=== PATIENT | female | born 1985 | race Caucasian/White ===

== ENCOUNTER 2018-08-03 11:13 | Emergency (ER) | payer MEDICAID, SELFPAY ==
[2018-08-03 11:14] VITALS: BP 158/87; PULSE 110; RESP 20; TEMP 36.8; O2SAT 98; BMI 42.5
--- NOTE | 2018-08-03 11:23 | HMH.EDUTC ---
[facility] [place] Disposition Clinical Impression: Strep pharyngitis Disposition: Home, Self-Care Condition on Discharge: Good Instructions: DI for Strep Throat Prescriptions: Amoxicillin [Amoxicillin 875MG Tab] 875 mg PO Q12H #20 tab Referrals: Kristina Kennedy MD [Primary Care Provider] - Time of Disposition: 11:29 Medical Decision Making - Garret Inquiry Pt receiving controlled substance: No Vital Signs: 08/03/18 11:14 Temperature 98.3 F Temperature Source Oral Pulse Rate [Left Radial] 110 H Respiratory Rate 20 Blood Pressure [Right Arm] 158/87 H Blood Pressure Mean [Right Arm] 110 Blood Pressure Source [Right Arm] Automatic Cuff Blood Pressure Position [Right Arm] Sitting 02 Sat by Pulse Oximetry 98 Oxygen Delivery Method Room Air - Lab Data Lab results reviewed: Yes: I reviewed the patient's lab results. [facility] [place] HPI - General Stated complaint: sore throat Time Seen by Provider: 08/03/18 11:24 Mode of Arrival: Ambulatory Source of Information: Patient Limitations: No Limitations Description of Symptoms (Recalled from Triage Doc. by RN): sore throat and swollen throat HEENT Symptoms (Recalled from RN notes): Yes Resp Symptoms (Recalled from RN notes): No Skin Symptoms (Recalled from RN notes): No MS Symptoms (Recalled from RN notes): No Functional Status (Recalled from RN notes): wnl - History of Present Illness Provider Complaint: Sore throat started in the middle of the night. No fever. Throat feels swollen, extremely sore, and has difficulty swallowing. Mild right ear pain. Mild cough (smoker). No vomiting or diarrhea. LMP 2 months ago - states does not have regular periods. Onset (ago): hour(s) (12) Location: mouth Relieving factors: none Exacerbating factors: none Associated symptoms: denies other symptoms Treatments prior to arrival: none - Related Data Previous Rx's Medication Instructions Recorded Azithromycin [Z-Brian 250mg Tab] 250 mg PO UD DOSE PK #6 tab 04/03/18 Benzonatate [Tessalon Perle 100mg 100 mg PO TID #30 cap 04/03/18 Cap] Fluticasone Propionate [Flonase 2 spr NS DAILY #1 bottle 04/03/18 50mcg nasal spray 16gm] predniSONE [Prednisone 5mg Tab 5 mg PO UD DOSE PK #21 pack 04/03/18 Dose-Pack] Amoxicillin [Amoxicillin 875MG 875 mg PO Q12H #20 tab 08/03/18 Tab] Allergies Allergy/AdvReac Type Severity Reaction Status Date / Time Sulfa (Sulfonamide Allergy Verified 05/11/18 08:41 Antibiotics) - Worker's Comp Is this a Worker's Comp case?: No H History - Hepatitis A Screen Drug use history?: No High risk sexual behaviors?: No History of sexually transmitted infection?: No Currently employed?: No Childcare worker?: No Do you have indoor plumbing?: Yes Do you have electricity?: Yes Attestation statement:: This patient has been screened for Hepatitis A risk factors. I have reviewed the patient's past medical history: No Medical History: Denies:: Diabetes Mellitus Type 1, Diabetes Mellitus Type 2 - Social History Educational Level: Completed High School Smoking Status: Current every day smoker Tobacco Type: cigarettes # Packs/Day (cigarettes): 1 Alcohol Intake: never Occupational Status: unemployed Housing: house - Psychiatric History Expresses thoughts of harming self/others: None Suicide Plan Description: No Plan ROS Obtained: Yes All systems reviewed & no additional complaints - ENT Ears, Nose, Mouth, and Throat: Reports sore throat, Reports throat swelling Physical Exam - General General appearance: alert, in no apparent distress - Head Head exam: atraumatic, normocephalic, normal inspection - Eye Eye exam: Present: normal appearance, PERRL, EOMI - ENT ENT exam: Present: normal exam, normal oropharynx, mucous membranes moist, TM's normal bilaterally, normal external ear exam - Expanded ENT Exam Throat exam: Present: tonsillar erythema, tonsillomegaly, tonsillar exudate - Neck Neck exam: Present: normal insp
--- NOTE | 2018-08-03 11:27 | ED_ITS ---
[facility] [place]ression: Strep pharyngitis Disposition: Home, Self-Care Condition on Discharge: Good Instructions: DI for Strep Throat Prescriptions: Amoxicillin [Amoxicillin 875MG Tab] 875 mg PO Q12H #20 tab Referrals: Kristina Kennedy MD [Primary Care Provider] - Time of Disposition: 11:29 Medical Decision Making - Garret Inquiry Pt receiving controlled substance: No Vital Signs: 08/03/18 11:14 Temperature 98.3 F Temperature Source Oral Pulse Rate [Left Radial] 110 H Respiratory Rate 20 Blood Pressure [Right Arm] 158/87 H Blood Pressure Mean [Right Arm] 110 Blood Pressure Source [Right Arm] Automatic Cuff Blood Pressure Position [Right Arm] Sitting 02 Sat by Pulse Oximetry 98 Oxygen Delivery Method Room Air - Lab Data Lab results reviewed: Yes: I reviewed the patient's lab results. [facility] [place] - General Stated complaint: sore throat Time Seen by Provider: 08/03/18 11:24 Mode of Arrival: Ambulatory Source of Information: Patient Limitations: No Limitations Description of Symptoms (Recalled from Triage Doc. by RN): sore throat and swollen throat HEENT Symptoms (Recalled from RN notes): Yes Resp Symptoms (Recalled from RN notes): No Skin Symptoms (Recalled from RN notes): No MS Symptoms (Recalled from RN notes): No Functional Status (Recalled from RN notes): wnl - History of Present Illness Provider Complaint: Sore throat started in the middle of the night. No fever. Throat feels swollen, extremely sore, and has difficulty swallowing. Mild right ear pain. Mild cough (smoker). No vomiting or diarrhea. LMP 2 months ago - states does not have regular periods. Onset (ago): hour(s) (12) Location: mouth Relieving factors: none Exacerbating factors: none Associated symptoms: denies other symptoms Treatments prior to arrival: none - Related Data Previous Rx's Medication Instructions Recorded Azithromycin [Z-Brian 250mg Tab] 250 mg PO UD DOSE PK #6 tab 04/03/18 Benzonatate [Tessalon Perle 100mg 100 mg PO TID #30 cap 04/03/18 Cap] Fluticasone Propionate [Flonase 2 spr NS DAILY #1 bottle 04/03/18 50mcg nasal spray 16gm] predniSONE [Prednisone 5mg Tab 5 mg PO UD DOSE PK #21 pack 04/03/18 Dose-Pack] Amoxicillin [Amoxicillin 875MG 875 mg PO Q12H #20 tab 08/03/18 Tab] Allergies Allergy/AdvReac Type Severity Reaction Status Date / Time Sulfa (Sulfonamide Allergy Verified 05/11/18 08:41 Antibiotics) - Worker's Comp Is this a Worker's Comp case?: No [facility] History - Hepatitis A Screen Drug use history?: No High risk sexual behaviors?: No History of sexually transmitted infection?: No Currently employed?: No Childcare worker?: No Do you have indoor plumbing?: Yes Do you have electricity?: Yes Attestation statement:: This patient has been screened for Hepatitis A risk factors. I have reviewed the patient's past medical history: No Medical History: Denies:: Diabetes Mellitus Type 1, Diabetes Mellitus Type 2 - Social History Educational Level: Completed High School Smoking Status: Current every day smoker Tobacco Type: cigarettes # Packs/Day (cigarettes): 1 Alcohol Intake: never Occupational Status
[2018-08-03 11:35] LABS: UTC Strep Screen (Rapid) Positive (Negative)
[2018-08-03 11:41] VITALS: BP 158/87; PULSE 110; RESP 20; TEMP 36.8; O2SAT 98
== END 2018-08-03 11:42 | disposition home or self-care (01) ==
PROVIDERS: Emergency Provider Physician Assistant; PCP Student in an Organized Health Care Education/Training Program
DX: J02.0 Streptococcal pharyngitis (principal); F17.210 Nicotine dependence, cigarettes, uncomplicated; Z88.0 Allergy status to penicillin
CPT/HCPCS: 87880; 99201

== ENCOUNTER 2019-11-27 14:09 | Emergency (ER) | payer MEDICAID, SELFPAY ==
[2019-11-27 14:56] VITALS: BP 116/84; PULSE 96; RESP 20; TEMP 36.9; O2SAT 98; BMI 50.3
--- NOTE | 2019-11-27 15:24 | HMH.EDUTC ---
[facility] [place] Clinical Impression: Viral syndrome Disposition: Home, Self-Care Condition on Discharge: Good Instructions: DI for Viral Syndrome Additional Instructions: Drink plenty of fluids. Take tylenol or ibuprofen for pain or fever. Follow up with your regular doctor. GO TO THE ER FOR ANY WORSENING SYMPTOMS FOLLOW THE DIRECTIONS ON THE COVID-19 HAND OUT THAT WE GAVE YOU REGARDING SELF-ISOLATION UNTIL YOU KNOW YOUR COVID-19 RESULTS Referrals: PCP,No [Primary Care Provider] - Forms: Work/School Release Time of Disposition: 15:29 Medical Decision Making - Medical Records Medical records reviewed: No: I reviewed the patient's medical records. - Garret Inquiry Pt receiving controlled substance: No Vital Signs: 11/27/19 14:56 11/27/19 15:32 Temperature 98.4 F 98.4 F Temperature Source Oral Oral Pulse Rate 96 H Pulse Rate [Radial] 96 H Respiratory Rate 20 20 Blood Pressure 116/84 Blood Pressure [Right Arm] 116/84 Blood Pressure Mean [Right Arm] 94 Blood Pressure Source Automatic Cuff Blood Pressure Source [Right Arm] Automatic Cuff Blood Pressure Position Sitting Blood Pressure Position [Right Arm] Sitting 02 Sat by Pulse Oximetry 98 Oxygen Delivery Method Room Air Room Air - Lab Data Lab results reviewed: Yes: I reviewed the patient's lab results. [facility] [place] - General Stated complaint: fever Time Seen by Provider: 11/27/19 15:24 Mode of Arrival: Ambulatory Source of Information: Patient Limitations: No Limitations Description of Symptoms (Recalled from Triage Doc. by RN): running a low grade fever HEENT Symptoms (Recalled from RN notes): Yes Resp Symptoms (Recalled from RN notes): No Skin Symptoms (Recalled from RN notes): No MS Symptoms (Recalled from RN notes): No Functional Status (Recalled from RN notes): wnl - History of Present Illness Provider Complaint: She states that she was at work this morning when her temp was checked and it read 100.6. She denies feeling bad, other than she has had some nasal congestion on and off for the past 3 days. - Related Data Previous Rx's Medication Instructions Recorded Albuterol Sulfate [Albuterol HFA 2 puffs IH Q6HP PRN #1 inh 11/22/18 Inhaler] Azithromycin [Z-Brian 250mg Tab*] 250 mg PO UD DOSE PK #6 tab 11/22/18 predniSONE [Prednisone 20mg 20 mg PO BID 5 Days #10 tab 11/22/18 Tab] guaiFENesin [Mucinex] 600 mg PO Q12H 5 Days #10 12/06/18 tab.er.12h levoFLOXacin [Levaquin 500mg 500 mg PO DAILY #10 tab 12/06/18 tab] Allergies Allergy/AdvReac Type Severity Reaction Status Date / Time Sulfa (Sulfonamide Allergy Verified 05/11/18 08:41 Antibiotics) - Worker's Comp Is this a Worker's Comp case?: No [facility] History - Hepatitis A Screen Drug use history?: No High risk sexual behaviors?: No History of sexually transmitted infection?: No Currently employed?: No Childcare worker?: No Do you have indoor plumbing?: Yes Do you have electricity?: Yes Attestation statement:: This patient has been screened for Hepatitis A risk factors. I have reviewed the patient's past medical history: Yes Medical History: Denies:: Diabetes Mellitus Type 1, Diabetes Mellitus Type 2 - Social History Smoking Status: Current every day smoker Tobacco Type: cigarettes # Packs/Day (cigarettes): 1 Alcohol Intake: never Occupational Status: other Housing: house ROS Obtained: Yes All systems reviewed & no additional complaints - Constitutional Constitutional: Reports chills, Denies fever(s), Reports poor appetite, Reports malaise - Eyes Eyes: Denies eye discharge - ENT Ears, Nose, Mouth, and Throat: Reports as per HPI - Cardiovascular Cardiovascular: Denies chest pain Physical Exam - General General appearance: alert, in no apparent distress - Head Head exam: atraumatic, normocephalic, normal inspection - Eye Eye exam: Present: normal appearance, PERRL, EOMI - ENT ENT
[2019-11-27 15:32] VITALS: BP 116/84; PULSE 96; RESP 20; TEMP 36.9; O2SAT 98
== END 2019-11-27 15:34 | disposition home or self-care (01) ==
PROVIDERS: Emergency Provider Nurse Practitioner Family
DX: B34.9 Viral infection, unspecified (principal); Z88.2 Allergy status to sulfonamides; F17.210 Nicotine dependence, cigarettes, uncomplicated; Z20.828 Contact with and (suspected) exposure to other viral communicable diseases
CPT/HCPCS: 99201; U0003

== ENCOUNTER 2019-12-02 11:44 | Emergency (ER) | payer MEDICAID, SELFPAY ==
[2019-12-02 12:53] VITALS: BP 141/93; PULSE 82; RESP 16; TEMP 36.9; O2SAT 99; BMI 49.6
--- NOTE | 2019-12-02 12:53 | HMH.EDUTC ---
[facility] [place] Clinical Impression: Bronchitis Sinusitis Qualifiers: Sinusitis location: unspecified location Chronicity: acute Recurrence: non-recurrent Qualified Code(s): J01.90 - Acute sinusitis, unspecified Disposition: Home, Self-Care Condition on Discharge: Good Instructions: Sinusitis, DI for Sinusitis, DI for Acute Bronchitis Additional Instructions: Drink plenty of fluids. Take tylenol or ibuprofen for pain or fever. Take the medications as directed. Follow up with your regular doctor. GO TO THE ER FOR ANY WORSENING SYMPTOMS Don't start the oral steroids until tomorrow, since you had the shot here today. The cough medication (promethazine dm) will make you drowsy, so don't drive or operate heavy machinery after taking it. FOLLOW THE DIRECTIONS ON THE COVID-19 HAND OUT THAT WE GAVE YOU REGARDING SELF-ISOLATION UNTIL YOU KNOW YOUR COVID-19 RESULTS Prescriptions: Brompheniramine/Pseudoephed/Dm [Bromfed Dm Cough Syrup] 5 ml PO Q6HP PRN #240 syrup PRN Reason: Cough Transmission Status: Received by [facility] # methylPREDNISolone [Medrol] 4 mg PO DIRECTED 6 Days #21 tab.ds.pk Transmission Status: Received by [facility] [employer] # Azithromycin [Z-Brian 250mg Tab*] 250 mg PO UD DOSE PK #6 tab Transmission Status: Received by [facility] [employer] # Referrals: PCP,No [Primary Care Provider] - Forms: Work/School Release Time of Disposition: 13:21 Medical Decision Making - Medical Records Medical records reviewed: No: I reviewed the patient's medical records. - Garret Inquiry Pt receiving controlled substance: No Vital Signs: 12/02/19 12:53 12/02/19 13:27 Temperature 98.5 F 98.5 F Temperature Source Oral Pulse Rate 82 Pulse Rate [Right Brachial] 82 Respiratory Rate 16 16 Blood Pressure 141/93 H Blood Pressure [Right Arm] 141/93 H Blood Pressure Mean [Right Arm] 109 Blood Pressure Source [Right Arm] Automatic Cuff Blood Pressure Position [Right Arm] Sitting 02 Sat by Pulse Oximetry 99 Oxygen Delivery Method Room Air - Lab Data Lab results reviewed: Yes: I reviewed the patient's lab results. Orders (Tests/Meds): ED MEDICATIONS Discontinued Medications Generic Name Dose Route Start Last Admin Trade Name Freq PRN Reason Stop Dose Admin Ceftriaxone Sodium 1 gm 12/02/19 13:05 12/02/19 13:18 Ceftriaxone 1gm Vial IM 12/02/19 13:06 1 gm ONCE ONE Administration Protocol Lidocaine HCl 0 ml 12/02/19 13:05 12/02/19 13:18 Lidocaine 1% 5ml Pf Vial IM 12/02/19 13:06 2.1 ml ONCE ONE Administration Methylprednisolone Sodium Succinate 125 mg 12/02/19 13:05 12/02/19 13:18 Methylprednisolone Sod Succ 125mg Vial IM 12/02/19 13:06 125 mg ONCE ONE Administration [facility] [place] - General Stated complaint: congested Time Seen by Provider: 12/02/19 12:53 - History of Present Illness Provider Complaint: She c/o worsening cough and sinus and chest congestion. She was here last week and she was tested for covid (result was negative). She states that since then she has got worse. - Related Data Previous Rx's Medication Instructions Recorded Albuterol Sulfate [Albuterol HFA 2 puffs IH Q6HP PRN #1 inh 11/22/18 Inhaler] Azithromycin [Z-Brian 250mg Tab*] 250 mg PO UD DOSE PK #6 tab 11/22/18 predniSONE [Prednisone 20mg 20 mg PO BID 5 Days #10 tab 11/22/18 Tab] guaiFENesin [Mucinex] 600 mg PO Q12H 5 Days #10 12/06/18 tab.er.12h levoFLOXacin [Levaquin 500mg 500 mg PO DAILY #10 tab 12/06/18 tab] Azithromycin [Z-Brian 250mg Tab*] 250 mg PO UD DOSE PK #6 tab 12/02/19 Brompheniramine/Pseudoephed/Dm 5 ml PO Q6HP PRN #240 syrup 12/02/19 [Bromfed Dm Cough Syrup] methylPREDNISolone [Medrol] 4 mg PO DIRECTED 6 Days #21 12/02/19 tab.ds.pk Allergies Allergy/AdvReac Type Severity Reaction Status Date / Time Sulfa (Sulfonamide Allergy Verified 05/11/18 08:41 Antibiotics)
[2019-12-02 13:27] VITALS: BP 141/93; PULSE 82; RESP 16; TEMP 36.9; O2SAT 99
== END 2019-12-02 13:28 | disposition home or self-care (01) ==
PROVIDERS: Emergency Provider Nurse Practitioner Family
DX: J20.9 Acute bronchitis, unspecified (principal); J01.90 Acute sinusitis, unspecified; Z20.828 Contact with and (suspected) exposure to other viral communicable diseases; Z88.2 Allergy status to sulfonamides
CPT/HCPCS: 96372; 99201; U0003

== ENCOUNTER 2019-12-06 11:09 | Emergency (ER) | payer MEDICAID, SELFPAY ==
[2019-12-06 11:09] VITALS: BP 151/87; PULSE 78; RESP 16; TEMP 36.8; O2SAT 98; BMI 49.6
--- NOTE | 2019-12-06 11:57 | HMH.EDUTC ---
[facility] [place] Disposition Clinical Impression: Sinusitis Qualifiers: Sinusitis location: unspecified location Chronicity: acute Recurrence: non-recurrent Qualified Code(s): J01.90 - Acute sinusitis, unspecified Disposition: Home, Self-Care Condition on Discharge: Good Instructions: Sinusitis, DI for Sinusitis Additional Instructions: Finish the medications that you are on. Go home and rest. Take tylenol or ibuprofen for pain/fever. GO TO THE ER FOR ANY WORSENING SYMPTOMS OR CONCERNS Referrals: PCP,No [Primary Care Provider] - Forms: Work/School Release Time of Disposition: 12:10 Medical Decision Making - Medical Records Medical records reviewed: No: I reviewed the patient's medical records. - Garret Inquiry Pt receiving controlled substance: No Vital Signs: 12/06/19 11:09 12/06/19 12:13 Temperature 98.2 F 98.2 F Temperature Source Oral Oral Pulse Rate 78 Pulse Rate [Right] 78 Respiratory Rate 16 16 Blood Pressure 151/87 H Blood Pressure [Right Arm] 151/87 H Blood Pressure Mean [Right Arm] 108 Blood Pressure Source Automatic Cuff Blood Pressure Source [Right Arm] Automatic Cuff Blood Pressure Position Sitting Blood Pressure Position [Right Arm] Sitting 02 Sat by Pulse Oximetry 98 Oxygen Delivery Method Room Air Room Air [facility] [place] HPI - General Stated complaint: Fever, sore throat Time Seen by Provider: 12/06/19 11:56 Mode of Arrival: Ambulatory Source of Information: Patient Limitations: No Limitations Description of Symptoms (Recalled from Triage Doc. by RN): Pt advises she was at work and had a low grade temp. C/o headache and feeling congested. HAs already been tested for covid HEENT Symptoms (Recalled from RN notes): Yes (cough, headache) Resp Symptoms (Recalled from RN notes): No Skin Symptoms (Recalled from RN notes): No MS Symptoms (Recalled from RN notes): No Functional Status (Recalled from RN notes): na - History of Present Illness Provider Complaint: She states that she has been having continued sinus congestion. She was at work and felt sick so she was sent here. - Related Data Previous Rx's Medication Instructions Recorded Albuterol Sulfate [Albuterol HFA 2 puffs IH Q6HP PRN #1 inh 11/22/18 Inhaler] Azithromycin [Z-Brian 250mg Tab*] 250 mg PO UD DOSE PK #6 tab 11/22/18 predniSONE [Prednisone 20mg 20 mg PO BID 5 Days #10 tab 11/22/18 Tab] guaiFENesin [Mucinex] 600 mg PO Q12H 5 Days #10 12/06/18 tab.er.12h levoFLOXacin [Levaquin 500mg 500 mg PO DAILY #10 tab 12/06/18 tab] Azithromycin [Z-Brian 250mg Tab*] 250 mg PO UD DOSE PK #6 tab 12/02/19 Brompheniramine/Pseudoephed/Dm 5 ml PO Q6HP PRN #240 syrup 12/02/19 [Bromfed Dm Cough Syrup] methylPREDNISolone [Medrol] 4 mg PO DIRECTED 6 Days #21 12/02/19 tab.ds.pk Allergies Allergy/AdvReac Type Severity Reaction Status Date / Time Sulfa (Sulfonamide Allergy Verified 05/11/18 08:41 Antibiotics) - Worker's Comp Is this a Worker's Comp case?: No [facility] History - Hepatitis A Screen Drug use history?: No High risk sexual behaviors?: No History of sexually transmitted infection?: No Currently employed?: No Childcare worker?: No Do you have indoor plumbing?: Yes Do you have electricity?: Yes Attestation statement:: This patient has been screened for Hepatitis A risk factors. I have reviewed the patient's past medical history: Yes Medical History: Denies:: Diabetes Mellitus Type 1, Diabetes Mellitus Type 2 - Social History Smoking Status: Current every day smoker Tobacco Type: cigarettes # Packs/Day (cigarettes): 1 Alcohol Intake: never Occupational Status: other Housing: house ROS Obtained: Yes All systems reviewed & no additional complaints - Constitutional Constitutional: Denies chills, Denies fever(s) - ENT Ears, Nose, Mouth, and Throat: Reports as per HPI Physical Exam - General General appearance: alert, in no apparent distress - Head Head exam: atrau
[2019-12-06 12:13] VITALS: BP 151/87; PULSE 78; RESP 16; TEMP 36.8; O2SAT 98
== END 2019-12-06 12:29 | disposition home or self-care (01) ==
PROVIDERS: Emergency Provider Nurse Practitioner Family
DX: J01.90 Acute sinusitis, unspecified (principal); F17.210 Nicotine dependence, cigarettes, uncomplicated; Z88.2 Allergy status to sulfonamides
CPT/HCPCS: 99201

== ENCOUNTER 2020-02-18 08:10 | Emergency (ER) | payer MEDICAID, SELFPAY ==
[2020-02-18 08:17] VITALS: BP 151/87; PULSE 95; RESP 20; TEMP 36.8; O2SAT 98; BMI 47.8
--- NOTE | 2020-02-18 08:20 | HMH.EDGENADL ---
ED Disposition Clinical Impression: Abrasion of sclera of right eye Qualifiers: Encounter type: initial encounter Qualified Code(s): S05.8X1A - Other injuries of right eye and orbit, initial encounter Hordeolum Qualifiers: Hordeolum type: externum Laterality: right Eyelid: lower Qualified Code(s): H00.012 - Hordeolum externum right lower eyelid Disposition: Home Health Service Condition on Discharge: Good Instructions: DI for Hordeolum Additional Instructions: Additional instructions for EYE PAIN or INJURY: Follow up with an chapter relations administrator as soon as possible. Return to the emergency department if severe pain, loss of vision, pus drainage, severe swelling or redness of eyelids. Dr. [place] [address] Prescriptions: Tobramycin [Tobrex opthalmic solution 5mL] 1 drp OP Q4H #5 ml Transmission Status: Received by [facility] #[id number] Referrals: Sesar Velasquez III, DO [Primary Care Provider] - Forms: Work/School Release - Critical Care Critical Care Time: No Attestation: On , the high probability of a clinically significant, sudden or life threatening deterioration of the following system(s) required my full and direct attention, intervention and personal management. The time I documented below is in addition to time spent performing reported procedures but includes the following listed in this critical care notation. Medical Decision Making - Garret Inquiry Pt receiving controlled substance: No Vital Signs: 02/18/20 08:17 Temperature 98.3 F Temperature Source Oral Pulse Rate [Radial] 95 H Respiratory Rate 20 Blood Pressure [Right Arm] 151/87 H Blood Pressure Mean [Right Arm] 108 Blood Pressure Source [Right Arm] Automatic Cuff Blood Pressure Position [Right Arm] Sitting 02 Sat by Pulse Oximetry 98 Oxygen Delivery Method Room Air Medical Decision Narrative: Instructed in hot compresses every 2 hrs today. Tobramycin. Close follow-up with [facility]. General Adult HPI - General Stated complaint: rt eye pain Time Seen by Provider: 02/18/20 08:20 - History of Present Illness HPI narrative: She woke up with right eye pain involving her lower eye and lower eyelid. She does not wear contact lenses. No trauma or foreign bodies. Vision is blurry. No mucoid or purulent discharge or crusting. No known exposures. She does not describe a foreign body sensation. She says she went to work today, but was sent home. - Related Data Previous Rx's Medication Instructions Recorded Albuterol Sulfate [Albuterol HFA 2 puffs IH Q6HP PRN #1 inh 11/22/18 Inhaler] Azithromycin [Z-Brian 250mg Tab*] 250 mg PO UD DOSE PK #6 tab 11/22/18 predniSONE [Prednisone 20mg 20 mg PO BID 5 Days #10 tab 11/22/18 Tab] guaiFENesin [Mucinex] 600 mg PO Q12H 5 Days #10 12/06/18 tab.er.12h levoFLOXacin [Levaquin 500mg 500 mg PO DAILY #10 tab 12/06/18 tab] Azithromycin [Z-Brian 250mg Tab*] 250 mg PO UD DOSE PK #6 tab 12/02/19 Brompheniramine/Pseudoephed/Dm 5 ml PO Q6HP PRN #240 syrup 12/02/19 [Bromfed Dm Cough Syrup] methylPREDNISolone [Medrol] 4 mg PO DIRECTED 6 Days #21 12/02/19 tab.ds.pk Tobramycin [Tobrex opthalmic 1 drp OP Q4H #5 ml 02/18/20 solution 5mL] Allergies Allergy/AdvReac Type Severity Reaction Status Date / Time Sulfa (Sulfonamide Allergy Verified 05/11/18 08:41 Antibiotics) [facility] History - Hepatitis A Screen Attestation statement:: This patient has been screened for Hepatitis A risk factors. I have reviewed the patient's past medical history: Yes Medical History: Denies:: Diabetes Mellitus Type 1, Diabetes Mellitus Type 2 - Social History Smoking Status: Current every day smoker Tobacco Type: cigarettes # Packs/Day (cigarettes): 1 Alcohol Intake: never Occupational Status: other Housing: house ROS Obtained: Yes Systems reviewed as appropriate & no additional
[2020-02-18 08:44] VITALS: BP 151/87; PULSE 95; RESP 20; TEMP 36.8; O2SAT 98
== END 2020-02-18 08:46 | disposition home or self-care (01) ==
PROVIDERS: Emergency Provider Emergency Medicine; PCP Emergency Medicine
DX: S05.8X1A Other injuries of right eye and orbit, initial encounter (principal); H00.012 Hordeolum externum right lower eyelid; Z88.2 Allergy status to sulfonamides; F17.210 Nicotine dependence, cigarettes, uncomplicated
CPT/HCPCS: 99282

== ENCOUNTER 2020-09-09 13:15 | Emergency (ER) | payer SELFPAY ==
[2020-09-09 13:26] VITALS: BP 131/90; PULSE 90; RESP 20; TEMP 36.9; O2SAT 98; BMI 47.8
--- NOTE | 2020-09-09 13:47 | HMH.EDUTC ---
[facility] [place] Disposition Clinical Impression: Bronchitis Sinusitis Qualifiers: Sinusitis location: unspecified location Chronicity: unspecified Qualified Code(s): J32.9 - Chronic sinusitis, unspecified Disposition: Home, Self-Care Condition on Discharge: Good Instructions: Sinusitis, DI for Sinusitis, Acute Bronchitis, Azithromycin, Prednisone Additional Instructions: ? Start antibiotic today. Be sure to complete entire prescription even if feeling better ? Monitor temp. Tylenol every 4 hours as needed and / or ibuprofen every 6 hours as needed ( As long as your primary care physician has told you that it ok to take both. For fever/aches/pains ER if no less than 101 despite Tylenol or Motrin ? Humidifier/vaporizer or hot steamy shower ? Inhaler every 4-6 hours as needed like we discussed. If unsure how to use it, ask pharmacist to demonstrate how. Should help open airways and improve cough, wheezing, and shortness of breath ? Mucinex as prescribed for your cough and chest congestion Be sure to drink lots of water. . *Start steroid today. Helps with inflammation therefore, cough and wheezing. Follow directions on the package. Reviewed side effects. Patient reports taking them before. Follow up IMMEDIATELY for new or worsening of symptoms OR no noticeable improvement over the next 48-72 hours. 911 immediately for any life threatening symptoms such as chest pain or difficulty breathing Prescriptions: Albuterol Sulfate [Proventil-HFA 90mcg/puff Inh] 1 - 2 puffs IH Q4HP PRN #1 inh PRN Reason: Shortness Of Breath Transmission Status: Pending to [facility] # guaiFENesin [Mucinex 600mg tablet] 1 - 2 tab PO Q12H PRN #20 tab.er.12h PRN Reason: Congestion Transmission Status: Pending to [facility] # predniSONE [Prednisone 20mg Tab] 20 mg PO BID 5 Days #10 tab Transmission Status: Pending to [facility] # Azithromycin [Z-Brian 250mg Tab] 250 mg PO DIRECTED #6 tab Transmission Status: Pending to [facility] # Referrals: Kristina Kennedy MD [Primary Care Provider] - As needed Time of Disposition: 14:01 Medical Decision Making - Garret Inquiry Pt receiving controlled substance: No Garret was queried for this patient: No Vital Signs: 09/09/20 13:26 Temperature 98.4 F Temperature Source Oral Pulse Rate [Left] 90 Respiratory Rate 20 Blood Pressure [Right Arm] 131/90 Blood Pressure Mean [Right Arm] 103 02 Sat by Pulse Oximetry 98 [facility] [place] HPI - General Stated complaint: congested, soa, fever Time Seen by Provider: 09/09/20 13:48 Mode of Arrival: Ambulatory Source of Information: Patient Limitations: No Limitations Description of Symptoms (Recalled from Triage Doc. by RN): pt c/o congestion, fever, LAYTON, sore throat, and a productive cough ongoing since yesterday. HEENT Symptoms (Recalled from RN notes): Yes (sore throat sinus congestion and LAYTON) Resp Symptoms (Recalled from RN notes): Yes (productive cough) Skin Symptoms (Recalled from RN notes): No MS Symptoms (Recalled from RN notes): No Functional Status (Recalled from RN notes): na - History of Present Illness Provider Complaint: Patient states that she has been having sinus congestion and drainage on and off for a couple of weeks and thought it may have been allergies State that she started having some drainage in the back of her throat, pain and pressure in her sinuses, sore throat and feeling like it is trying to move into her chest States that when she has been able to blow out mucous it has been yellowish green an at time she coughes up same mucous States that when she gets coughing she feels SOA at times - Related Data Previous Rx's Medication Instructions Recorded Albuterol Sulfate [Albuterol HFA 2 puffs IH Q6HP PRN #1 inh 11/22/18 Inhaler] Azithromycin [Z-Brian 250mg Tab*] 250 mg PO UD DOSE PK #6 tab 11/22/18 predniSONE [Prednisone 20mg 20 mg PO BID 5 Days #10 tab 11/22/18 Tab] tete
[2020-09-09 14:02] VITALS: BP 130/87; PULSE 93; RESP 22; TEMP 36.6
== END 2020-09-09 14:04 | disposition home or self-care (01) ==
PROVIDERS: Emergency Provider Nurse Practitioner; PCP Student in an Organized Health Care Education/Training Program
DX: J20.9 Acute bronchitis, unspecified (principal); J32.9 Chronic sinusitis, unspecified; F17.210 Nicotine dependence, cigarettes, uncomplicated; Z79.899 Other long term (current) drug therapy; Z88.2 Allergy status to sulfonamides
CPT/HCPCS: 99202; G0463

== ENCOUNTER 2020-10-12 19:43 | Emergency (ER) | payer OTHER, SELFPAY ==
[2020-10-12 21:45] VITALS: BP 150/95; PULSE 89; RESP 21; TEMP 36.8; O2SAT 98; BMI 47.8
--- NOTE | 2020-10-12 22:20 | HMH.EDUTC ---
[facility] [place] Clinical Impression: Cough, Encounter for laboratory testing for COVID-19 virus Disposition: Home, Self-Care Condition on Discharge: Good Instructions: Cough, DI for COVID-19 (Suspected or Confirmed ), Coronavirus Disease 2019, Preventing the Spread of Coronavirus Discharge Instructions Additional Instructions: *Monitor Temp, Over the counter Motrin or Tylenol as directed/as needed Tylenol every 4 hours and Motrin every 6 hours (as long as your family doctor has told you that you can take it) for fever or pain. and straight to ER if unable to lower temp less than 101.0 after medication given *Warm salt water gargles may help to soothe the throat *Throat Lozenges *Warm fluids like tea with honey may help to soothe the throat *Sleep elevated *Humidifier/Vaporizer Follow up IMMEDIATELY for new or worsening symptoms or no Noticeable improvement over the next 48-72 hours. 911 for difficulty breathing or swallowing You were tested for today for COVID19 your test result should be back in the next 24-48 hours, you may call to the [facility] to see if your test results are back in the next 48 hours [phone] [facility] hours are 9am-9pm You was given a handout with instructions for Self Quarantine and Self isolation for while you wait on test results and what to do if they are positive If you are positive the Health Dept will be contacting you also Make sure to take your Vitamins Vit. C Vit D and Zinc if you can take them Prescriptions: Fluticasone Propionate [Flonase 50mcg nasal spray 16gm] 1 spr NS DAILY #1 ml Transmission Status: Pending to [facility] # Benzonatate [Tessalon Perle 100mg Cap*] 100 mg PO TID PRN #15 cap PRN Reason: Cough Transmission Status: Pending to [facility] # Referrals: Kristina Kennedy MD [Primary Care Provider] - As needed Forms: Work/School Release Time of Disposition: 22:51 Medical Decision Making - Garret Inquiry Pt receiving controlled substance: No Garret was queried for this patient: No Vital Signs: 10/12/20 21:45 Temperature 98.3 F Temperature Source Oral Pulse Rate [Right Brachial] 89 Respiratory Rate 21 Blood Pressure [Right Arm] 150/95 H Blood Pressure Mean [Right Arm] 113 Blood Pressure Source [Right Arm] Automatic Cuff Blood Pressure Position [Right Arm] Sitting 02 Sat by Pulse Oximetry 98 Oxygen Delivery Method Room Air Orders (Tests/Meds): ORDERS Category Date Time Status Covid-19 Nasal PCR ([facility]) Routine Lab 10/12/20 21:54 Received [facility] [place] HPI - General Stated complaint: covid test/exposure Time Seen by Provider: 10/12/20 22:20 Mode of Arrival: Ambulatory Source of Information: Patient Limitations: No Limitations Description of Symptoms (Recalled from Triage Doc. by RN): PATIENT C/O CONGESTION, SOA, AND COUGH X 1 MONTH. BOYFRIEND RECENTLY TESTED POSITIVE FOR COVID HEENT Symptoms (Recalled from RN notes): No Resp Symptoms (Recalled from RN notes): Yes Skin Symptoms (Recalled from RN notes): No MS Symptoms (Recalled from RN notes): No Functional Status (Recalled from RN notes): WNL - History of Present Illness Provider Complaint: Patient state that she was sick about a month ago and has been having cough ever since States that for the last couple of days her Cough has got worse and she feels like she is starting to have nasal congestion again and her boyfriend just tested positive for COVID last night - Related Data Previous Rx's Medication Instructions Recorded Benzonatate [Tessalon Perle 100mg 100 mg PO TID PRN #15 cap 10/12/20 Cap*] Fluticasone Propionate [Flonase 1 spr NS DAILY #1 ml 10/12/20 50mcg nasal spray 16gm] Allergies Allergy/AdvReac Type Severity Reaction Status Date / Time Sulfa (Sulfonamide Allergy Verified 05/11/18 08:41 Antibiotics) - Worker's Comp Is this a Worker's Comp case?: No [facility] History - Hepatitis A Screen Drug use history?: No High risk sexual behaviors?: No
[2020-10-12 22:55] VITALS: BP 150/95; PULSE 89; RESP 21; TEMP 36.8; O2SAT 98
--- NOTE | 2020-10-13 12:26 | PC.NURSE ---
PATIENT NOTIFIED OF POSITIVE COVID TEST AT THIS TIME
== END 2020-10-12 23:00 | disposition home or self-care (01) ==
PROVIDERS: Emergency Provider Nurse Practitioner; PCP Student in an Organized Health Care Education/Training Program
DX: U07.1 COVID-19 (principal); F17.210 Nicotine dependence, cigarettes, uncomplicated
CPT/HCPCS: 99202; G0463; U0003

== ENCOUNTER 2020-11-23 14:20 | Emergency (ER) | payer OTHER, SELFPAY ==
[2020-11-23 14:40] VITALS: BP 158/82; PULSE 84; RESP 20; TEMP 36.8; O2SAT 96; BMI 47.8
--- NOTE | 2020-11-23 15:05 | XR_ITS ---
PROCEDURE: XR FEMUR RT 2V CLINICAL INDICATION: PAIN TO BACK OF RIGHT THIGH COMPARISON: No exams were available for comparison FINDINGS: No fracture or dislocation. No lytic or blastic change. There is normal mineralization. The joint spaces are well-preserved. No significant degenerative/arthritic changes. No erosive changes evident. Other findings:None. IMPRESSION: No acute findings. Dictated by: Kirt Bullock MD 11/23/2020 15:45 Kirt Bullock MD in [place] 11/23/2020 15:45
--- NOTE | 2020-11-23 15:22 | HMH.EDUTC ---
[facility] Disposition Clinical Impression: Pulled hamstring Qualifiers: Encounter type: initial encounter Laterality: right Qualified Code(s): S76.311A - Strain of muscle, fascia and tendon of the posterior muscle group at thigh level, right thigh, initial encounter Disposition: Home, Self-Care Condition on Discharge: Good Instructions: DI for Hamstring Strain, Hamstrings Strain, How To Perform RICE (Rest, Ice, Compress, Elevate) Additional Instructions: *weight bearing as tolerated *RICE, Rest the extremity, Ice 15-20 minutes 3-4 times daily, Compress- wear the sukhdeep wrap as discussed as much as possible to help reduce swelling and pain, Elevate the extremity when at rest *Sukhdeep wrap is for support and help control swelling, use it except in the shower. Be sure that is not to tight but not to loose either *Elevate when resting *Etodolac every 8 hours as needed for pain an inflammation. If need something more can take Tylenol in between doses of Ibuprofen to help Immediately follow up with your family doctor for new or worsening of symptoms, or no noticeable improvement over the next 3-5 days Muscle relaxers as prescribed Warm soaks in warm water and epson salt may help with pain Follow up with your Family Doctor if no improvement Return if needed Prescriptions: Etodolac 200 mg PO Q8HP PRN #20 cap PRN Reason: Moderate Pain Transmission Status: Pending to [facility] #[id number] Cyclobenzaprine HCl [Flexeril 10mg tablet] 10 mg PO TID PRN 30 Days #90 tab PRN Reason: Muscle Spasm Transmission Status: Pending to [facility] #[id number] Referrals: Provider,Referral, [Primary Care Provider] - As needed Time of Disposition: 16:21 Medical Decision Making - Garret Inquiry Pt receiving controlled substance: No Garret was queried for this patient: No Vital Signs: 11/23/20 14:40 Temperature 98.3 F Temperature Source Oral Pulse Rate [Right Brachial] 84 Respiratory Rate 20 Blood Pressure [Right Arm] 158/82 H Blood Pressure Mean [Right Arm] 107 Blood Pressure Source [Right Arm] Automatic Cuff Blood Pressure Position [Right Arm] Sitting 02 Sat by Pulse Oximetry 96 Oxygen Delivery Method Room Air - Lab Data Lab results reviewed: Yes: I reviewed the patient's lab results. - Radiology Data #1 Image(s): Femur Image Reviewed: Yes I have reviewed radiologist's interpretation Preliminary Findings: Normal/NAD, No Fracture Seen [facility] HPI - General Stated complaint: right leg pain Time Seen by Provider: 11/23/20 15:22 Mode of Arrival: Ambulatory Source of Information: Patient Limitations: No Limitations Description of Symptoms (Recalled from Triage Doc. by RN): PATIENT C/O PAIN TO BACK OF RIGHT THIGH. STATES THIS HAS BEEN GOING ON FOR A WHILE, BUT HAS GOTTEN WORSE OVER PAST FEW DAYS. ROM/EXTENSION LIMITED IN RLE HEENT Symptoms (Recalled from RN notes): No Resp Symptoms (Recalled from RN notes): No Skin Symptoms (Recalled from RN notes): No MS Symptoms (Recalled from RN notes): Yes Functional Status (Recalled from RN notes): WNL - History of Present Illness Provider Complaint: Patient states that she has been working on her sons room and has been climbing up and down stool States that she started having feeling of tightness in her right thigh area States that she has been having feeling of tightness like a charley horse that is worse when she tries to stand or stretch her leg Denies known injury Denies history of DVT - Related Data Previous Rx's Medication Instructions Recorded Cyclobenzaprine HCl [Flexeril 10mg 10 mg PO TID PRN 30 Days #90 tab 11/23/20 tablet] Etodolac 200 mg PO Q8HP PRN #20 cap 11/23/20 Allergies Allergy/AdvReac Type Severity Reaction Status Date / Time Sulfa (Sulfonamide Allergy Verified 05/11/18 08:41 Antibiotics) - Worker's Comp Is this a Worker's Comp case?: No [facility] History - Hepatitis A Screen Drug use history?: No High risk sexual behaviors?: No History
[2020-11-23 16:18] LABS: UTC Pregnancy Test, Urine Negative (Negative)
[2020-11-23 16:23] VITALS: BP 158/82; PULSE 84; RESP 20; TEMP 36.8; O2SAT 96
== END 2020-11-23 16:29 | disposition home or self-care (01) ==
PROVIDERS: Emergency Provider Nurse Practitioner
DX: S76.311A Strain of muscle, fascia and tendon of the posterior muscle group at thigh level, right thigh, initial encounter (principal); X50.0XXA Overexertion from strenuous movement or load, initial encounter; X50.3XXA Overexertion from repetitive movements, initial encounter; Y92.019 Unspecified place in single-family (private) house as the place of occurrence of the external cause
CPT/HCPCS: 73552; 81025; 99202; G0463

== ENCOUNTER 2021-03-17 13:21 | Emergency (ER) | payer OTHER, SELFPAY ==
[2021-03-17 16:16] VITALS: BP 195/128; PULSE 90; RESP 20; TEMP 36.6; O2SAT 97; BMI 47.8
[2021-03-17 16:35] LABS: UTC Influenza A Antigen Negative (Negative)
[2021-03-17 16:36] LABS: UTC Influenza B Antigen Negative (Negative)
--- NOTE | 2021-03-17 16:43 | HMH.EDUTC ---
[facility] [place] Disposition Clinical Impression: Exposure to COVID-19 virus, Viral syndrome Acute bronchitis Qualifiers: Bronchitis organism: unspecified organism Qualified Code(s): J20.9 - Acute bronchitis, unspecified Disposition: Home, Self-Care Condition on Discharge: Good Instructions: Preventing the Spread of Coronavirus Discharge Instructions, DI for COVID-19 (Suspected or Confirmed ), DI for Acute Bronchitis Additional Instructions: Drink plenty of fluids. Take tylenol or ibuprofen for pain or fever. Take the medications as directed. Follow up with your regular doctor. GO TO THE ER FOR ANY WORSENING SYMPTOMS Quarantine until you know the results of your covid-19 test. Notify your school or workplace of your results and follow their instructions regarding return to work/school. The cough medication (promethazine dm) will make you drowsy, so don't drive or operate heavy machinery after taking it. Prescriptions: Promethazine/Dextromethorphan [Promethazine-Dm Syrup] 5 ml PO Q6HP PRN #240 ml PRN Reason: Cough Transmission Status: Pending to [facility] # methylPREDNISolone [Medrol] 4 mg PO DIRECTED 6 Days #21 packet Transmission Status: Pending to [facility] # guaiFENesin [Mucinex 600mg tablet] 1 - 2 tab PO BIDP PRN #30 tab PRN Reason: Congestion Transmission Status: Pending to [facility] # Azithromycin [Z-Brian 250mg Tab*] 250 mg PO UD DOSE PK #6 tab Transmission Status: Pending to [facility] # Referrals: Kristina Kennedy MD [Primary Care Provider] - Time of Disposition: 17:08 Medical Decision Making - Medical Records Medical records reviewed: No: I reviewed the patient's medical records. - Garret Inquiry Pt receiving controlled substance: No Vital Signs: 03/17/21 16:16 Temperature 98 F Temperature Source Oral Pulse Rate [Left] 90 Respiratory Rate 20 Blood Pressure [Right Arm] 195/128 H Blood Pressure Mean [Right Arm] 150 02 Sat by Pulse Oximetry 97 - Lab Data Lab results reviewed: Yes: I reviewed the patient's lab results. Lab Results 03/17/21 16:24: Influenza Type A Ag Negative, Influenza Type B Ag Negative Orders (Tests/Meds): ORDERS Category Date Time Status Covid-19 Nasal PCR ([facility]) Routine Lab 03/17/21 16:24 Received [facility] [place] HPI - General Stated complaint: congestion, sore throat, weakness, cough, h/a Time Seen by Provider: 03/17/21 16:43 Mode of Arrival: Ambulatory Source of Information: Patient Limitations: No Limitations Description of Symptoms (Recalled from Triage Doc. by RN): pt c/o a cough, congestoin and loss of voice. son has covid. x2 wks. HEENT Symptoms (Recalled from RN notes): Yes (congestion) Resp Symptoms (Recalled from RN notes): Yes (cough) Skin Symptoms (Recalled from RN notes): No MS Symptoms (Recalled from RN notes): No Functional Status (Recalled from RN notes): wnl - History of Present Illness Provider Complaint: She states that for the past 4 days she has had cough, chest congestion, sinus congestion and a sore throat. - Related Data Previous Rx's Medication Instructions Recorded Cyclobenzaprine HCl [Flexeril 10mg 10 mg PO TID PRN 30 Days #90 tab 11/23/20 tablet] Etodolac 200 mg PO Q8HP PRN #20 cap 11/23/20 Azithromycin [Z-Brian 250mg Tab*] 250 mg PO UD DOSE PK #6 tab 03/17/21 Promethazine/Dextromethorphan 5 ml PO Q6HP PRN #240 ml 03/17/21 [Promethazine-Dm Syrup] guaiFENesin [Mucinex 600mg tablet] 1 - 2 tab PO BIDP PRN #30 tab 03/17/21 methylPREDNISolone [Medrol] 4 mg PO DIRECTED 6 Days #21 03/17/21 packet Allergies Allergy/AdvReac Type Severity Reaction Status Date / Time Sulfa (Sulfonamide Allergy Verified 05/11/18 08:41 Antibiotics) - Worker's Comp Is this a Worker's Comp case?: No [facility] History - Hepatitis A Screen Drug use history?: No High risk sexual behaviors?: No History of sexually transmitted infection?: No Currently e
[2021-03-17 17:15] VITALS: BP 187/111; PULSE 90; RESP 20; TEMP 36.6
== END 2021-03-17 17:16 | disposition home or self-care (01) ==
PROVIDERS: Emergency Provider Nurse Practitioner Family; PCP Student in an Organized Health Care Education/Training Program
DX: J20.9 Acute bronchitis, unspecified (principal); Z20.822 Contact with and (suspected) exposure to COVID-19; F17.210 Nicotine dependence, cigarettes, uncomplicated; Z88.2 Allergy status to sulfonamides
CPT/HCPCS: 87804; 99202; C9803; G0463; U0003; U0005

== ENCOUNTER 2021-08-31 16:44 | Emergency (ER) | payer OTHER, SELFPAY ==
[2021-08-31 17:35] VITALS: BP 173/79; PULSE 98; RESP 19; TEMP 36.9; O2SAT 99; BMI 45.6
--- NOTE | 2021-08-31 17:58 | HMH.EDUTC ---
[facility] [place] Clinical Impression: Bronchitis Sinusitis Qualifiers: Sinusitis location: unspecified location Chronicity: unspecified Qualified Code(s): J32.9 - Chronic sinusitis, unspecified Disposition: Home, Self-Care Condition on Discharge: Good Instructions: Sinusitis, DI for Sinusitis, Acute Bronchitis Additional Instructions: ? Start antibiotic today. Be sure to complete entire prescription even if feeling better ? Monitor temp. Tylenol every 4 hours as needed and / or ibuprofen every 6 hours as needed ( As long as your primary care physician has told you that it ok to take both. For fever/aches/pains ER if no less than 101 despite Tylenol or Motrin ? Humidifier/vaporizer or hot steamy shower ? Mucinex for your cough Be sure to drink lots of water. Insurance may not cover a prescriptions for mucinex. *Start steroid today. Helps with inflammation therefore, cough and wheezing. Follow directions on the package. Reviewed side effects. Patient reports taking them before. Follow up IMMEDIATELY for new or worsening of symptoms OR no noticeable improvement over the next 48-72 hours. 911 immediately for any life threatening symptoms such as chest pain or difficulty breathing Prescriptions: methylPREDNISolone [Medrol 4mg tab] 4 mg PO DIRECTED #21 tab Transmission Status: Pending to [facility] # guaiFENesin [Mucinex 600mg tablet] 1 - 2 tab PO BID #20 tab Transmission Status: Pending to [facility] # Azithromycin [Z-Brian 250mg Tab] 250 mg PO DIRECTED #6 tab Transmission Status: Pending to [facility] # Referrals: Provider,Referral, [Primary Care Provider] - As needed Time of Disposition: 18:05 Medical Decision Making - Garret Inquiry Pt receiving controlled substance: No Garret was queried for this patient: No Vital Signs: 08/31/21 17:35 Temperature 98.5 F Temperature Source Oral Pulse Rate [Right Brachial] 98 H Respiratory Rate 19 Blood Pressure [Right Arm] 173/79 H Blood Pressure Mean [Right Arm] 110 Blood Pressure Source [Right Arm] Automatic Cuff Blood Pressure Position [Right Arm] Sitting 02 Sat by Pulse Oximetry 99 Oxygen Delivery Method Room Air [facility] [place] - General Stated complaint: cough, Headache and congestion Time Seen by Provider: 07/05/22 17:50 Mode of Arrival: Ambulatory Source of Information: Patient Limitations: No Limitations Description of Symptoms (Recalled from Triage Doc. by RN): PATIENT C/O HEADACHE, CONGESTION, COUGH, AND COLD SWEATS X 4 DAYS HEENT Symptoms (Recalled from RN notes): Yes Resp Symptoms (Recalled from RN notes): Yes Skin Symptoms (Recalled from RN notes): No MS Symptoms (Recalled from RN notes): No Functional Status (Recalled from RN notes): WNL - History of Present Illness Provider Complaint: Patient states that she feels like she may have a sinsus infection and bronchitis States that she has been having sinus congestion with drainage in the back of her throat, drainage, cough and feels like it is trying to move into her chest area and she wanted to get on top of it before it got real bad - Related Data Previous Rx's Medication Instructions Recorded Cyclobenzaprine HCl [Flexeril 10mg 10 mg PO TID PRN 30 Days #90 tab 11/23/20 tablet] Etodolac 200 mg PO Q8HP PRN #20 cap 11/23/20 Azithromycin [Z-Brian 250mg Tab*] 250 mg PO UD DOSE PK #6 tab 03/17/21 Promethazine/Dextromethorphan 5 ml PO Q6HP PRN #240 ml 03/17/21 [Promethazine-Dm Syrup] guaiFENesin [Mucinex 600mg tablet] 1 - 2 tab PO BIDP PRN #30 tab 03/17/21 methylPREDNISolone [Medrol] 4 mg PO DIRECTED 6 Days #21 03/17/21 packet Azithromycin [Z-Brian 250mg Tab] 250 mg PO DIRECTED #6 tab 08/31/21 guaiFENesin [Mucinex 600mg tablet] 1 - 2 tab PO BID #20 tab 08/31/21 methylPREDNISolone [Medrol 4mg 4 mg PO DIRECTED #21 tab 08/31/21 tab] Allergies Allergy/AdvReac Type Severity Reaction Status Date / Time Sulfa (Sulfonamide [facility]er
[2021-08-31 18:06] VITALS: BP 173/79; PULSE 98; RESP 19; TEMP 36.9; O2SAT 99
== END 2021-08-31 18:14 | disposition home or self-care (01) ==
PROVIDERS: Emergency Provider Nurse Practitioner
DX: J40 Bronchitis, not specified as acute or chronic (principal); J32.9 Chronic sinusitis, unspecified
CPT/HCPCS: 99212; G0463

== ENCOUNTER 2021-11-25 13:43 | Emergency (ER) | payer OTHER, SELFPAY ==
[2021-11-25 13:44] VITALS: BP 166/79; PULSE 86; RESP 18; TEMP 37.1; O2SAT 97; BMI 46.0
[2021-11-25 14:43] LABS: UTC Strep Screen (Rapid) Negative (Negative)
--- NOTE | 2021-11-25 14:50 | EXP.UTC ---
Discharge Plan Disposition Patient Disposition: Home, Self-Care Condition: Good Prescriptions Prescriptions: New azithromycin [Zithromax] 250 mg tablet 250 mg PO UD DOSE PK Qty: 6 0RF Rx Instructions: Take two (2) tablets today, then one (1) tablet days #2 thru #5 benzonatate [benzonatate] 100 mg capsule 100 mg PO TIDP PRN (Reason: Cough) Qty: 30 0RF ondansetron 4 mg Tablet,Disintegrating 4 mg PO Q8H PRN (Reason: Nausea) Qty: 20 0RF No Action cyclobenzaprine 10 MG tablet 10 mg PO TID PRN (Reason: Muscle Spasm) 30 Days Qty: 90 0RF etodolac 200 MG capsule 200 mg PO Q8HP PRN (Reason: Moderate Pain) Qty: 20 0RF promethazine-DM 120 ML syrup 5 ml PO Q6HP PRN (Reason: Cough) Qty: 240 0RF azithromycin 250 MG tablet 250 mg PO UD DOSE PK Qty: 6 0RF Rx Instructions: Take two (2) tablets today, then one (1) tablet days #2 thru #5 methylprednisolone 4 MG tablets,dose pack 4 mg PO DIRECTED 6 Days Qty: 21 0RF guaifenesin 600 MG tablet extended release 12hr 1 - 2 tab PO BIDP PRN (Reason: Congestion) Qty: 30 0RF azithromycin 250 MG tablet 250 mg PO DIRECTED Qty: 6 0RF Rx Instructions: Take two (2) tablets on day #1, then one (1) tablet day #2 thru #5 methylprednisolone 4 MG tablet 4 mg PO DIRECTED Qty: 21 0RF Rx Instructions: Take as directed on package instructions guaifenesin 600 MG tablet extended release 12hr 1 - 2 tab PO BID Qty: 20 0RF Referrals Follow up/Referrals: Provider,Referral, MD [Primary Care Provider] - See instructions Activity Restrictions/Add. Instructions Additional Instructions/Restrictions: Drink plenty of fluids. Take tylenol or ibuprofen for pain or fever. Take the medications as directed. Follow up with your regular doctor. GO TO THE ER FOR ANY WORSENING SYMPTOMS Quarantine until you know the results of your covid-19 test. Notify your school or workplace of your results and follow their instructions regarding return to work/school. Clinical Impressions Clinical Impression: Acute bronchitis, Pharyngitis Stand Alone Forms Stand Alone Forms: Work/School Release Instructions Patient Instructions: Coronavirus Disease 2019, Preventing the Spread of Coronavirus Discharge Instructions Dis[place] ED [place] [facility] [place] Stated complaint: fever, congestion, sore throat Time Seen by Provider: 11/25/21 14:50 History of Present Illness Provider Complaint: She states that for the past 2 days she has had a sore throat and nonproductive cough. Related Data Previous Rx's Medication Instructions Recorded cyclobenzaprine 10 mg tablet 10 mg PO TID PRN Muscle Spasm 30 11/23/20 days #90 tabs etodolac 200 mg capsule 200 mg PO Q8HP PRN Moderate Pain 11/23/20 #20 caps azithromycin 250 mg tablet 250 mg PO UD DOSE PK #6 tabs 03/17/21 guaifenesin 600 mg tablet, 1 - 2 tab PO BIDP PRN Congestion 03/17/21 extended release 12 hr #30 tabs methylprednisolone 4 mg tablets in 4 mg PO DIRECTED 6 days #21 03/17/21 a dose pack packets promethazine-DM 6.25 mg-15 mg/5 mL 5 ml PO Q6HP PRN Cough #240 mL 03/17/21 oral syrup azithromycin 250 mg tablet 250 mg PO DIRECTED #6 tabs 08/31/21 guaifenesin 600 mg tablet, 1 - 2 tab PO BID Congestion/chest 08/31/21 extended release 12 hr congesti #20 tabs methylprednisolone 4 mg tablet 4 mg PO DIRECTED #21 tabs 08/31/21 azithromycin 250 mg tablet 250 mg PO UD DOSE PK #6 tabs 11/25/21 (Zithromax) benzonatate 100 mg capsule 100 mg PO TIDP PRN Cough #30 caps 11/25/21 ondansetron 4 mg disintegrating 4 mg PO Q8H PRN Nausea #20 tabs 11/25/21 tablet Allergies Allergy/AdvReac Type Severity Reaction Status Date / Time Sulfa (Sulfonamide Allergy Verified 05/11/18 08:41 Antibiotics) [facility] Social History Smoking Status: Current every day smoker tobacco type: cigarettes pack
[2021-11-25 15:17] VITALS: BP 166/79; PULSE 86; RESP 18; TEMP 37.1; O2SAT 97
== END 2021-11-25 15:19 | disposition home or self-care (01) ==
PROVIDERS: Emergency Provider Nurse Practitioner Family
DX: J20.9 Acute bronchitis, unspecified (principal)
CPT/HCPCS: 87880; 99212; C9803; G0463; U0003; U0005

== ENCOUNTER 2022-01-18 13:54 | Emergency (ER) | payer OTHER, SELFPAY ==
[2022-01-18 14:40] VITALS: BP 149/83; PULSE 86; RESP 22; TEMP 36.6; O2SAT 95; BMI 53.3
[2022-01-18 14:41] LABS: UTC Influenza A Antigen Negative (Negative); UTC Influenza B Antigen Negative (Negative)
[2022-01-18 15:09] VITALS: BP 149/83; PULSE 86; RESP 22; TEMP 36.6; O2SAT 95
--- NOTE | 2022-01-18 15:15 | EXP.UTC ---
Discharge Plan Disposition Patient Disposition: Home, Self-Care Condition: Good Prescriptions Prescriptions: New levofloxacin 500 mg tablet 500 mg PO DAILY 7 Days Qty: 7 0RF methylprednisolone [Medrol (Brian)] 4 mg tablets,dose pack See Rx Instructions .Route .COMPLEX 6 Days Qty: 21 0RF Rx Instructions: taper pack; guaifenesin [Mucinex] 600 mg tablet extended release 12hr 600 mg PO BID PRN (Reason: cough) Qty: 20 0RF albuterol sulfate [Proventil HFA] 90 mcg/actuation HFA aerosol inhaler 1 inh inhalation Q6H PRN (Reason: shortness of breath or wheezing) Qty: 8.5 0RF Referrals Follow up/Referrals: Provider,Referral, MD [Primary Care Provider] - See instructions Activity Restrictions/Add. Instructions Additional Instructions/Restrictions: Start antibiotic today. Be sure to complete entire prescription even if feeling better Monitor temp. Tylenol every 4 hours as needed and / or ibuprofen every 6 hours as needed ( As long as your primary care physician has told you that it ok to take both. For fever/aches/pains ER if no less than 101 despite Tylenol or Motrin Humidifier/vaporizer or hot steamy shower Inhaler every 4-6 hours as needed like we discussed. If unsure how to use it, ask pharmacist to demonstrate how. Should help open airways and improve cough, wheezing, and shortness of breath Mucinex for your cough Be sure to drink lots of water. *Start steroid today. Helps with inflammation therefore, cough and wheezing. Follow directions on the package. Reviewed side effects. Patient reports taking them before. Follow up IMMEDIATELY for new or worsening of symptoms OR no noticeable improvement over the next 48-72 hours. 911 immediately for any life threatening symptoms such as chest pain or difficulty breathing Clinical Impressions Clinical Impression: Bronchitis, Sinusitis Instructions Patient Instructions: DI for Sinusitis, Sinusitis, Acute Bronchitis Discharge ED Provider: Isabel Torres [facility] [place] General Stated complaint: chest congestion, cough Mode of Arrival: Ambulatory Source of Information: Patient Limitations: No Limitations Time Seen by Provider: 01/18/22 15:15 Description of Symptoms (Recalled from Triage Doc. by RN): PATIENT C/O CONGESTION, DRY COUGH, AND CHEST/BACK PAIN WHEN TAKING A BREATH X 2 DAYS HEENT Symptoms (Recalled from RN notes): No Resp Symptoms (Recalled from RN notes): Yes Skin Symptoms (Recalled from RN notes): No MS Symptoms (Recalled from RN notes): No Functional Status (Recalled from RN notes): WNL History of Present Illness Provider Complaint: Patient state that she gets bronchitis sometimes States that she has been having dry cough, chest congestion, sinus congestion and pressure and at times She will hurt a little in her back when she takes a deep breath or coughs to hard State that today she was still not feeling well so she came in to get checked out States that she had bronchitis about a month ago and doesnt think it cleared all the way up then Related Data Previous Rx's Medication Instructions Recorded albuterol sulfate 90 mcg/actuation 1 inh inhalation Q6H PRN shortness 01/18/22 aerosol inhaler (Proventil HFA) of breath or wheezing #8.5 grams guaifenesin 600 mg tablet, 600 mg PO BID PRN cough #20 tabs 01/18/22 extended release 12 hr (Mucinex) levofloxacin 500 mg tablet 500 mg PO DAILY 7 days #7 tabs 01/18/22 methylprednisolone 4 mg tablets in See Rx Instructions .Route 01/18/22 a dose pack (Medrol (Brian)) .COMPLEX 6 days #21 tabs Allergies Allergy/AdvReac Type Severity Reaction Status Date / Time Sulfa (Sulfonamide Allergy Verified 05/11/18 08:41 Antibiotics) Worker's Comp Is this a Worker's Comp case?: No [facility] Medical History (Updated 01/18/22 @ 15:31 by Isabel Torres APRN) No significant past medical history Social History (Updated 01/18/22 @ 14:56 by Alec
== END 2022-01-18 15:42 | disposition home or self-care (01) ==
PROVIDERS: Emergency Provider Nurse Practitioner
DX: J40 Bronchitis, not specified as acute or chronic (principal); M54.9 Dorsalgia, unspecified; F17.210 Nicotine dependence, cigarettes, uncomplicated; Z79.51 Long term (current) use of inhaled steroids; Z79.52 Long term (current) use of systemic steroids; Z79.899 Other long term (current) drug therapy; Z88.2 Allergy status to sulfonamides
CPT/HCPCS: 87804; 99213; G0463

== ENCOUNTER 2022-01-24 15:05 | Emergency (ER) | payer OTHER, SELFPAY ==
[2022-01-24 15:17] VITALS: BP 158/99; PULSE 100; RESP 16; TEMP 37.1; O2SAT 96; BMI 46.9
--- NOTE | 2022-01-24 15:18 | XR_ITS ---
FINAL REPORT CLINICAL HISTORY: cough FINDINGS: CHEST TWO-VIEW The lungs are clear. There is no evidence of effusion or other pleural disease. The mediastinum as a normal appearance. The cardiac silhouette is unremarkable. IMPRESSION: No acute findings. Reviewed, Interpreted and Dictated by Tova Elias MD Transcribed by Ben Saldivar Authenticated and . [facility]
--- NOTE | 2022-01-24 17:04 | EXP.UTC ---
Discharge Plan Disposition Patient Disposition: Home, Self-Care Condition: Good Prescriptions Prescriptions: New promethazine-DM 6.25-15 mg/5 mL Syrup 5 ml PO Q6H PRN (Reason: Cough) Qty: 240 0RF azithromycin [Zithromax] 250 mg tablet 250 mg PO UD DOSE PK Qty: 6 0RF Rx Instructions: Take two (2) tablets today, then one (1) tablet days #2 thru #5 No Action levofloxacin 500 mg tablet 500 mg PO DAILY 7 Days Qty: 7 0RF methylprednisolone [Medrol (Brian)] 4 mg tablets,dose pack See Rx Instructions .Route .COMPLEX 6 Days Qty: 21 0RF Rx Instructions: taper pack; guaifenesin [Mucinex] 600 mg tablet extended release 12hr 600 mg PO BID PRN (Reason: cough) Qty: 20 0RF albuterol sulfate [Proventil HFA] 90 mcg/actuation HFA aerosol inhaler 1 inh inhalation Q6H PRN (Reason: shortness of breath or wheezing) Qty: 8.5 0RF Referrals Follow up/Referrals: Provider,Referral, MD [Primary Care Provider] - See instructions Activity Restrictions/Add. Instructions Additional Instructions/Restrictions: Drink plenty of fluids. Take tylenol or ibuprofen for pain or fever. Take the medications as directed. Stop the levaquin and start the azithromycin. Follow up with your regular doctor. GO TO THE ER FOR ANY WORSENING SYMPTOMS Clinical Impressions Clinical Impression: Bronchitis, Viral syndrome Stand Alone Forms Stand Alone Forms: Work/School Release Instructions Patient Instructions: DI for Viral Syndrome Discharge ED Provider: Man Nunez [facility] General Stated complaint: haed congestion Mode of Arrival: Ambulatory Source of Information: Patient Limitations: No Limitations Time Seen by Provider: 01/24/22 17:04 History of Present Illness Provider Complaint: pt advises she has been sick for a week with congestion and a cough Has started antibiotics and steroids but is not feeling much better that were prescribed by her pcp Related Data Previous Rx's Medication Instructions Recorded albuterol sulfate 90 mcg/actuation 1 inh inhalation Q6H PRN shortness 01/18/22 aerosol inhaler (Proventil HFA) of breath or wheezing #8.5 grams guaifenesin 600 mg tablet, 600 mg PO BID PRN cough #20 tabs 01/18/22 extended release 12 hr (Mucinex) levofloxacin 500 mg tablet 500 mg PO DAILY 7 days #7 tabs 01/18/22 methylprednisolone 4 mg tablets in See Rx Instructions .Route 01/18/22 a dose pack (Medrol (Brian)) .COMPLEX 6 days #21 tabs azithromycin 250 mg tablet 250 mg PO UD DOSE PK #6 tabs 01/24/22 (Zithromax) promethazine-DM 6.25 mg-15 mg/5 mL 5 ml PO Q6H PRN Cough #240 mL 01/24/22 oral syrup Allergies Allergy/AdvReac Type Severity Reaction Status Date / Time Sulfa (Sulfonamide Allergy Verified 01/24/22 17:20 Antibiotics) [facility] Medical History No significant past medical history Social History Smoking Status: Current every day smoker tobacco type: cigarettes packs per day: 1 second hand exposure: Yes alcohol intake: never current occupational status: other Travel in the last 8 weeks: None housing: house ROS Obtained: Yes All systems reviewed & no additional complaints except as documented Constitutional Constitutional: Reports chills and Reports fever(s) Eyes Eyes: Denies eye discharge ENT Ears, Nose, Mouth, and Throat: Reports as per HPI Cardiovascular Cardiovascular: Denies chest pain Respiratory Respiratory: Denies chest congestion and Reports cough Gastrointestinal Gastrointestingal: Reports nausea; Denies abdominal pain, constipation, cramping, diarrhea or vomiting Musculoskeletal Musculoskeletal: Denies arthralgias Integumentary/Breasts Skin/Breast: Denies rash Neurologic Neurologic: Denies paresthesias Physical Exam General General appearance: alert and in no apparent distress Head Head exam: atraumatic, normocephalic and
[2022-01-24 17:15] VITALS: BP 153/89; PULSE 99; RESP 16; TEMP 36.9; O2SAT 97; BMI 53.1
[2022-01-24 17:28] VITALS: BP 153/89; PULSE 99; RESP 16; TEMP 36.9
[2022-01-24 17:56] LABS: Adenovirus,PCR Not Detected (NotDetected); Bordetella Pertussis Not Detected (NotDetected); Chlamydophila Pneumoniae, PCR Not Detected (NotDetected); Coronavirus 19, PCR Not Detected (NotDetected); Coronavirus 229E Not Detected (NotDetected); Coronavirus NL63 Not Detected (NotDetected); Coronavirus OC43 Not Detected (NotDetected); Coronovirus HKU1,PCR Not Detected (NotDetected); Human Metapneumovirus Not Detected (NotDetected); Influenza A, PCR Not Detected (NotDetected); Influenza AH1, 2009 Not Detected (NotDetected); Influenza AH1, PCR Not Detected (NotDetected); Influenza AH3,PCR Not Detected (NotDetected); Influenza B, PCR Not Detected (NotDetected); Mycoplasma Pneumoniae, PCR Not Detected (NotDetected); Parainfluenza 1, PCR Not Detected (NotDetected); Parainfluenza 2, PCR Not Detected (NotDetected); Parainfluenza 3, PCR Not Detected (NotDetected); Parainfluenza 4, PCR Not Detected (NotDetected); Respiratory Syncytial Virus Not Detected (NotDetected); Rhinovirus/Enterovirus Not Detected (NotDetected)
== END 2022-01-24 17:35 | disposition home or self-care (01) ==
LOC: ER 15:17 → UTC 15:17
PROVIDERS: Emergency Provider Nurse Practitioner Family
DX: J20.9 Acute bronchitis, unspecified (principal); B34.9 Viral infection, unspecified
CPT/HCPCS: 71046; 87581; 87632; 87798; 99212; C9803; G0463; U0003; U0005

== ENCOUNTER → 2022-08-23 15:15 | Outpatient (CLI) | payer OTHER, SELFPAY ==
[2022-08-23 18:39] LABS: Basophils # 0.1 K/mm3 (0-0.2); Basophils % 0.5 % (0.1-2.0); Eosinophils # 0.3 K/mm3 (0.0-0.4); Eosinophils % 2.5 % (0.1-12.0); Hematocrit 47.3 % (37.0-47.0); Hemoglobin 14.7 g/dL (12.2-16.2); Lymphocytes % 23.1 % (10-50); Mean Corpuscular HGB Conc 31.1 g/dL (31.8-35.4); Mean Corpuscular Hemoglobin 26.9 pg (27.0-31.2); Mean Corpuscular Volume 86.6 fl (81-99); Mean Platelet Volume 10.9 fl (7.4-10.4); Monocytes # 0.9 K/mm3 (0.1-1.0); Monocytes % 6.5 % (1.7-9.3); Neutrophils # 8.8 K/mm3 (1.8-7.8); Neutrophils % 67.3 % (37.0-80.0); Platelet Count 392 K/mm3 (142-424); Red Blood Count 5.46 M/mm3 (4.20-5.40); Red Cell Distribution Width 15.5 % (11.5-17.5)
[2022-08-23 18:48] LABS: Alanine Aminotransferase 40 U/L (12-78); Albumin/Globulin Ratio 1.4 (1.1-1.8); Alkaline Phosphatase 100 U/L (38-126); Anion Gap 15.4 mEq/L (5-15); Aspartate Amino Transferase 37 U/L (14-36); Bilirubin,Total 0.5 mg/dl (0.2-1.3); Blood Urea Nitrogen 11 mg/dl (7-17); Calcium 9.2 mg/dl (8.4-10.2); Carbon Dioxide 25 mmol/L (22.0-30.0); Chloride 101 mmol/L (98-107); Chol/HDL Ratio 6.4 (1-3.5); Cholesterol 185 mg/dl (140-200); Estimated Glomerular Filt Rate 137 ml/min (>60); GFR (African American) 166 ML/MIN (>60); Globulin 2.9 g/dL (1.3-3.2); Glucose 132 mg/dl (74-100); HDL Cholesterol 29 mg/dl (40-60); Potassium 4.4 mmoL/L (3.5-5.1); Sodium 137 mmol/L (136-145); Total Protein,Serum 6.9 g/dl (6.3-8.2); Triglycerides 100 mg/dl (30-150); VLDL Cholesterol 20 mg/dL (0-40)
[2022-08-23 18:59] LABS: Direct LDL Cholesterol 138.73 mg/dL (100-129)
[2022-08-23 19:09] LABS: T4 (Thyroxine) 10.5 ug/dl (5.53-11.0)
[2022-08-23 19:10] LABS: 25-OH Vitamin D, Total 20.3 ng/mL (30-100)
[2022-08-23 19:22] LABS: Thyroid Stimulating Hormone 2.29 uIU/mL (0.465-4.68)
== END ==
PROVIDERS: PCP Emergency Medicine; Visit Provider Emergency Medicine
DX: R53.83 Other fatigue (principal); E55.9 Vitamin D deficiency, unspecified; E66.01 Morbid (severe) obesity due to excess calories; Z68.43 Body mass index [BMI] 50.0-59.9, adult; Z79.899 Other long term (current) drug therapy
CPT/HCPCS: 80053; 80061; 82306; 84436; 84443; 85025

== ENCOUNTER → 2022-11-08 12:03 | Outpatient (CLI) | payer OTHER, SELFPAY ==
[2022-11-08 12:43] LABS: Basophils # 0.1 K/mm3 (0-0.2); Basophils % 0.5 % (0.1-2.0); Eosinophils # 0.5 K/mm3 (0.0-0.4); Eosinophils % 3.8 % (0.1-12.0); Hematocrit 44.7 % (37.0-47.0); Hemoglobin 14.6 g/dL (12.2-16.2); Lymphocytes # 2.7 K/mm3 (0.7-4.5); Lymphocytes % 19.4 % (10-50); Mean Corpuscular HGB Conc 32.7 g/dL (31.8-35.4); Mean Corpuscular Hemoglobin 27.3 pg (27.0-31.2); Mean Corpuscular Volume 83.4 fl (81-99); Mean Platelet Volume 9.5 fl (7.4-10.4); Monocytes # 0.6 K/mm3 (0.1-1.0); Monocytes % 4.1 % (1.7-9.3); Neutrophils % 72.1 % (37.0-80.0); Platelet Count 404 K/mm3 (142-424); Red Blood Count 5.36 M/mm3 (4.20-5.40); Red Cell Distribution Width 15.5 % (11.5-17.5); White Blood Count 13.9 K/mm3 (4.8-10.8)
[2022-11-08 14:13] LABS: Alanine Aminotransferase 30 U/L (12-78); Alkaline Phosphatase 85 U/L (38-126); Aspartate Amino Transferase 28 U/L (14-36); Bilirubin,Direct 0.2 mg/dl (0.0-0.4); Bilirubin,Indirect 0.1 mg/dL (0.0-0.9); Bilirubin,Total 0.3 mg/dl (0.2-1.3); Bilirubin,Unconjugated 0.1 mg/dL (0.0-1.1); Blood Urea Nitrogen 15 mg/dl (7-17); Calcium 9.4 mg/dl (8.4-10.2); Carbon Dioxide 25 mmol/L (22.0-30.0); Chloride 103 mmol/L (98-107); Chol/HDL Ratio 7.2 (1-3.5); Cholesterol 179 mg/dl (140-200); Estimated Glomerular Filt Rate 111 ml/min (>60); GFR (African American) 135 ML/MIN (>60); Glucose 137 mg/dl (74-100); HDL Cholesterol 25 mg/dl (40-60); Sodium 138 mmol/L (136-145); Total Protein,Serum 7.2 g/dl (6.3-8.2); Triglycerides 106 mg/dl (30-150); VLDL Cholesterol 21 mg/dL (0-40)
[2022-11-08 14:25] LABS: Direct LDL Cholesterol 134.89 mg/dL (100-129)
[2022-11-08 14:30] LABS: Free T4 (Free Thyroxine) 1.27 ng/dl (0.78-2.19)
[2022-11-08 14:44] LABS: Thyroid Stimulating Hormone 1.88 uIU/mL (0.465-4.68)
== END ==
PROVIDERS: PCP Emergency Medicine; Visit Provider Internal Medicine
DX: R06.00 Dyspnea, unspecified (principal); R00.2 Palpitations; I11.9 Hypertensive heart disease without heart failure; R60.0 Localized edema; E11.9 Type 2 diabetes mellitus without complications; R94.31 Abnormal electrocardiogram [ECG] [EKG]; I63.9 Cerebral infarction, unspecified; E66.9 Obesity, unspecified; Z72.0 Tobacco use; Z68.43 Body mass index [BMI] 50.0-59.9, adult
CPT/HCPCS: 36415; 80048; 80061; 80076; 84439; 84443; 85025; 93270

== ENCOUNTER → 2022-12-15 15:10 | Outpatient (CLI) | payer OTHER, SELFPAY ==
--- NOTE | 2022-12-15 15:11 | CA_ITS ---
APPROVED REPORT EXAM: Comprehensive 2D, Doppler, and color-flow Echocardiogram Physical Chemist: Nafisa Waller, AINSLEY, RVS Ht: 5 ft 3 in Wt: 299lbs BSA: 2.29 BP: 147/73 mmHg Indications: abn ekg, Fatigue, adipex use 2D Dimensions LVDd 3.91 cm Aortic Root 2.78 cm Left Atrium 3.55 cm LVOT 2.25 cm (M/F) 1.5-2.5 M-Mode Dimensions RVDd 2.16 cm (0.9-2.6) LA Diam 3.79 cm (1.9-4.0) LVDd 3.81 cm (3.5-5.7) Ao Diam 2.77 cm (2.0-3.7) LVDs 2.71 cm (3.5-5.7) IVSd 1.40 cm (0.6-1.1) PWd 1.14 cm (0.6-1.1) EF (Teich) 56.20% EPSs 0.43 cm FS 28.90% EDV (Teich) 62.30 mL TAPSE 2.38 (<1.7) ESV (Teich) 27.30 mL LV Diastology E Decel Time 120.00 (160-240 msec) E/A Ratio 1.10 MED E' 6.80 (< 7 cm/sec) MED A' 12.10 cm/s E'/MED E' Ratio 12.87 (>14) LAT E' 10.20 (<10 cm/sec) LAT A' 12.70 cm/s E/LAT E' Ratio 8.58 (>14) Aortic Valve LVOT Max 107.00 (70-110 cm/s) LVOT VTI 21.35 cm AoV Peak Demar. 152.00 (50-130 cm/s) AO Peak GR. 9.20 mmHg AO Mean GR. 4.60 (<5 mmHg) AO VTI 26.24 (18-25 cm) NARDA (VTI) 3.24 (2.5-4.5 cm2) Mitral Valve MV A Velocity 79.00 (40-130 cm/s) E/A Ratio 1.10 MV Decel. Time 120.00 (160-240 ms) Left Ventricle The left ventricle is normal size. The left ventricular systolic function is normal. The left ventricular ejection fraction is within the normal range. There is normal left ventricular wall thickness. There is normal LV segmental wall motion. The left ventricular diastolic function is normal. LVEF is 60%. Right Ventricle The right ventricle is normal size. The right ventricular systolic function is normal. Atria The left atrium size is normal. The right atrium size is normal. The interatrial septum is not well visualized. Aortic Valve The aortic valve opens well. There is no aortic valvular stenosis. No aortic regurgitation is present. Mitral Valve The mitral valve is normal in structure. No evidence of mitral valve stenosis. There is no mitral valve regurgitation noted. Tricuspid Valve The tricuspid valve leaflets are thin and pliable. Trace tricuspid regurgitation. There is insufficient TR jet to estimate RVSP. Pulmonic Valve The pulmonary valve is normal in structure. Trace pulmonic regurgitation. Great Vessels The aortic root is normal in size. The ascending aorta is normal in size. IVC is normal in size and collapses >50% with inspiration. Pericardium There is no pericardial effusion. Other Information Study Quality: Fair Conclusion Normal biventricular systolic function. No significant valvular stenosis or regurgitation. Electronically signed by : Tasneem Oreilly MD 12/18/2022 21:31:30
== END ==
PROVIDERS: PCP Emergency Medicine; Visit Provider Emergency Medicine
DX: R53.83 Other fatigue (principal)
CPT/HCPCS: 93306

== ENCOUNTER 2024-01-03 14:34 | Outpatient (CLI) | payer OTHER, SELFPAY ==
[2024-01-03 18:29] LABS: Basophils # 0.1 K/mm3 (0-0.2); Eosinophils # 0.2 K/mm3 (0.0-0.4); Eosinophils % 1.9 % (0.1-12.0); Hematocrit 47.3 % (37.0-47.0); Hemoglobin 15.5 g/dL (12.2-16.2); Lymphocytes # 2.3 K/mm3 (0.7-4.5); Mean Corpuscular HGB Conc 32.9 g/dL (31.8-35.4); Mean Corpuscular Hemoglobin 27.6 pg (27.0-31.2); Mean Corpuscular Volume 84.1 fl (81-99); Mean Platelet Volume 10.1 fl (7.4-10.4); Monocytes # 0.7 K/mm3 (0.1-1.0); Neutrophils # 8.7 K/mm3 (1.8-7.8); Neutrophils % 72.1 % (37.0-80.0); Platelet Count 370 K/mm3 (142-424); Red Blood Count 5.62 M/mm3 (4.20-5.40); Red Cell Distribution Width 15.2 % (11.5-17.5)
[2024-01-03 18:58] LABS: Hemoglobin A1C 9.5 % (4.0-6.0)
[2024-01-03 19:04] LABS: Alanine Aminotransferase 62 U/L (12-78); Albumin Level 3.8 g/dl (3.5-5.0); Albumin/Globulin Ratio 1.4 (1.1-1.8); Alkaline Phosphatase 105 U/L (38-126); Anion Gap 11.4 mEq/L (5-15); Aspartate Amino Transferase 39 U/L (14-36); Bilirubin,Total 0.7 mg/dl (0.2-1.3); Blood Urea Nitrogen 11 mg/dl (7-17); Calcium 9.1 mg/dl (8.4-10.2); Carbon Dioxide 22 mmol/L (22.0-30.0); Chloride 105 mmol/L (98-107); Chol/HDL Ratio 6.9 (1-3.5); Cholesterol 194 mg/dl (140-200); Estimated Glomerular Filt Rate 137 ml/min (>60); GFR (African American) 165 ML/MIN (>60); Globulin 2.8 g/dL (1.3-3.2); Glucose 247 mg/dl (74-100); HDL Cholesterol 28 mg/dl (40-60); Potassium 4.4 mmoL/L (3.5-5.1); Sodium 134 mmol/L (136-145); Total Protein,Serum 6.6 g/dl (6.3-8.2); Triglycerides 146 mg/dl (30-150); VLDL Cholesterol 29 mg/dL (0-40)
[2024-01-03 19:17] LABS: Direct LDL Cholesterol 161.59 mg/dL (100-129)
[2024-01-03 19:22] LABS: 25-OH Vitamin D, Total 19.3 ng/mL (30-100)
[2024-01-03 19:54] LABS: Vitamin B12 865 pg/mL (239-931)
== END 2024-01-03 23:59 | disposition home or self-care (01) ==
LOC: LAB.DROPOF 01-04 10:29
PROVIDERS: PCP Family Medicine; Visit Provider Family Medicine
DX: R53.83 Other fatigue (principal); R60.0 Localized edema; E55.9 Vitamin D deficiency, unspecified; R73.03 Prediabetes
CPT/HCPCS: 80050; 80053; 80061; 82306; 82607; 83036; 84443; 85025

== ENCOUNTER 2024-01-08 19:27 | Outpatient (CLI) | payer OTHER, SELFPAY ==
[2024-01-08 21:01] LABS: Coronavirus 19, PCR Not Detected (NotDetected); Influenza A, PCR Not Detected (NotDetected); Influenza B, PCR Not Detected (NotDetected)
== END 2024-01-08 23:59 | disposition home or self-care (01) ==
LOC: LAB.DROPOF 19:28
PROVIDERS: PCP Family Medicine; Visit Provider Family Medicine
DX: R68.89 Other general symptoms and signs (principal)
CPT/HCPCS: 87636

== ENCOUNTER 2024-01-16 12:54 | Outpatient (CLI) | payer OTHER, SELFPAY ==
--- NOTE | 2024-01-16 13:36 | US_ITS ---
FINAL REPORT CLINICAL HISTORY: knot on back of rt knee - area of pain COMPARISON: None FINDINGS: Limited sonographic images were obtained of the soft tissues of the posterior right knee of the area of interest. There are a few subcentimeter hypoechoic subcutaneous nodules which may represent small lipomas. No discrete cyst or dominant mass identified. IMPRESSION: Probable small lipomas at the area of interest. Reviewed, Interpreted and Dictated by Vladimir Birmingham MD Transcribed by [employer] [place] Authenticated and [facility]
[2024-01-16 14:58] VITALS: BMI 54.3
== END 2024-01-16 23:59 | disposition home or self-care (01) ==
LOC: DIETICIAN 12:54
PROVIDERS: PCP Family Medicine; Visit Provider Family Medicine
DX: E11.9 Type 2 diabetes mellitus without complications (principal); M25.569 Pain in unspecified knee
CPT/HCPCS: 76882; 97802

== ENCOUNTER 2024-01-26 09:41 | Outpatient (CLI) | payer OTHER, SELFPAY ==
--- NOTE | 2024-01-26 09:42 | MM_ITS ---
PROCEDURE INFORMATION: Exam: Bilateral Screening 3D Mammography Exam date and time: 01/26/2024 9:34 AM Age: 38 years old Clinical indication: Baseline. Her maternal great grandmother and maternal aunt had breast cancer. TECHNIQUE: Imaging protocol: Bilateral Screening tomosynthesis and 2D mammography including computer-aided detection (CAD) when performed. COMPARISON: No relevant prior studies available. FINDINGS: MAMMOGRAPHY: Breast composition: There are scattered areas of fibroglandular density. Mass: None. Architectural distortion: None. Calcifications: No suspicious calcifications. Asymmetric density: None. Skin thickening: None. Axillary adenopathy: None. IMPRESSION: No mammographic evidence of malignancy. Annual screening is recommended unless otherwise clinically indicated. ASSESSMENT: BI-RADS Category 1: Negative.
== END 2024-01-26 23:59 | disposition home or self-care (01) ==
LOC: RAD 09:42
PROVIDERS: PCP Family Medicine; Visit Provider Family Medicine
DX: Z12.31 Encounter for screening mammogram for malignant neoplasm of breast (principal)
CPT/HCPCS: 77063; 77067

== ENCOUNTER 2024-02-23 18:28 | Outpatient (CLI) | payer OTHER, SELFPAY ==
[2024-02-23 18:47] LABS: Coronavirus 19, PCR Not Detected (NotDetected); Influenza B, PCR Not Detected (NotDetected)
[2024-02-23 19:53] LABS: Influenza A, PCR Detected (NotDetected)
== END 2024-02-23 23:59 | disposition home or self-care (01) ==
LOC: LAB.DROPOF 18:29
PROVIDERS: PCP Family Medicine; Visit Provider Family Medicine
DX: R09.81 Nasal congestion (principal); J09.X9 Influenza due to identified novel influenza A virus with other manifestations; G47.33 Obstructive sleep apnea (adult) (pediatric); F17.210 Nicotine dependence, cigarettes, uncomplicated
CPT/HCPCS: 87070; 87636; G0399

== ENCOUNTER 2024-04-24 22:08 | Outpatient (CLI) | payer OTHER, SELFPAY ==
[2024-04-25 10:43] LABS: MANUAL DIFFERENTIAL MANUAL DIFFERENTIAL (MANUAL DIFF)
[2024-04-25 11:25] LABS: Basophils # 0.1 K/mm3 (0-0.2); Basophils % 0.5 % (0.1-2.0); Eosinophils # 0.5 K/mm3 (0.0-0.4); Eosinophils % 2.8 % (0.1-12.0); Hematocrit 45.6 % (37.0-47.0); Lymphocytes # 5.2 K/mm3 (0.7-4.5); Lymphocytes % 31.1 % (10-50); Mean Corpuscular HGB Conc 30.7 g/dL (31.8-35.4); Mean Corpuscular Hemoglobin 27.4 pg (27.0-31.2); Mean Corpuscular Volume 89.2 fl (81-99); Mean Platelet Volume 12.5 fl (7.4-10.4); Monocytes # 1.1 K/mm3 (0.1-1.0); Monocytes % 6.5 % (1.7-9.3); Neutrophils # 9.7 K/mm3 (1.8-7.8); Neutrophils % 58.3 % (37.0-80.0); Platelet Count 425 K/mm3 (142-424); Red Blood Count 5.11 M/mm3 (4.20-5.40); Red Cell Distribution Width 15.5 % (11.5-17.5); White Blood Count 16.6 K/mm3 (4.8-10.8)
[2024-04-25 11:47] LABS: Alanine Aminotransferase 31 U/L (12-78); Albumin Level 4.1 g/dl (3.5-5.0); Albumin/Globulin Ratio 1.5 (1.1-1.8); Alkaline Phosphatase 87 U/L (38-126); Anion Gap 12.7 mEq/L (5-15); Aspartate Amino Transferase 26 U/L (14-36); Bilirubin,Total 0.4 mg/dl (0.2-1.3); Blood Urea Nitrogen 14 mg/dl (7-17); Calcium 9.6 mg/dl (8.4-10.2); Carbon Dioxide 26 mmol/L (22.0-30.0); Chloride 101 mmol/L (98-107); Chol/HDL Ratio 6.1 (1-3.5); Cholesterol 152 mg/dl (140-200); Estimated Glomerular Filt Rate 110 ml/min (>60); GFR (African American) 133 ML/MIN (>60); Globulin 2.7 g/dL (1.3-3.2); Glucose 140 mg/dl (74-100); HDL Cholesterol 25 mg/dl (40-60); Potassium 4.7 mmoL/L (3.5-5.1); Sodium 135 mmol/L (136-145); Total Protein,Serum 6.8 g/dl (6.3-8.2); Triglycerides 137 mg/dl (30-150); VLDL Cholesterol 27 mg/dL (0-40)
[2024-04-25 11:57] LABS: Direct LDL Cholesterol 100.42 mg/dL (100-129)
[2024-04-25 12:01] LABS: 25-OH Vitamin D, Total 32.6 ng/mL (30-100)
[2024-04-25 12:15] LABS: Thyroid Stimulating Hormone 5.26 uIU/mL (0.465-4.68)
[2024-04-25 13:35] LABS: Eosinophils % 3 % (0-3); Lymphocytes % 32 % (10-50); Monocytes % 7 % (2-9); Neutrophils % 58 % (42-76); Platelet Estimate Normal; Total Cells Counted 100
[2024-04-25 13:36] LABS: RBC Morphology Normal
[2024-04-25 15:40] LABS: Hemoglobin A1C 7.4 % (4.0-6.0)
== END 2024-04-24 23:59 | disposition home or self-care (01) ==
LOC: LAB.DROPOF 22:10
PROVIDERS: PCP Family Medicine; Visit Provider Family Medicine
DX: E78.5 Hyperlipidemia, unspecified (principal); E11.9 Type 2 diabetes mellitus without complications; D64.9 Anemia, unspecified; E66.9 Obesity, unspecified
CPT/HCPCS: 80053; 80061; 82306; 83036; 84443; 85007; 85014; 85018; 85048; 85049

== ENCOUNTER 2024-08-08 22:48 | Outpatient (CLI) | payer OTHER, SELFPAY ==
[2024-08-08 23:22] LABS: MANUAL DIFFERENTIAL MANUAL DIFFERENTIAL (MANUAL DIFF)
[2024-08-08 23:25] LABS: Basophils # 0.1 K/mm3 (0-0.2); Basophils % 0.8 % (0.1-2.0); Eosinophils # 0.3 Kmm3 (0.0-0.4); Eosinophils % 2.6 % (0.1-12.0); Hematocrit 44.4 % (37.0-47.0); Hemoglobin 13.9 g/dL (12.2-16.2); Lymphocytes # 3.9 K/mm3 (0.7-4.5); Mean Corpuscular HGB Conc 31.3 g/dL (31.8-35.4); Mean Corpuscular Hemoglobin 26.6 pg (27.0-31.2); Mean Corpuscular Volume 85.1 fl (81-99); Mean Platelet Volume 12.1 fl (7.4-10.4); Monocytes # 0.9 K/mm3 (0.1-1.0); Monocytes % 6.8 % (1.7-9.3); Platelet Count 390 K/mm3 (142-424); Red Blood Count 5.22 M/mm3 (4.20-5.40); White Blood Count 13.3 K/mm3 (4.8-10.8)
[2024-08-09 00:01] LABS: Free Thyroxine Index 2.8 ug/dL (5.93-13.13); T4 (Thyroxine) 9.2 ug/dl (5.53-11.0); Triiodothryronine (T3) Uptake 30 % (23.5-40.5)
[2024-08-09 00:03] LABS: Eosinophils % 2 % (0-3); Lymphocytes % 33 % (10-50); Monocytes % 12 % (2-9); Neutrophils % 53 % (42-76); Total Cells Counted 100
[2024-08-09 00:05] LABS: Giant Platelets 1+; Macrocytosis 1+; Ovalocytes 1+
[2024-08-09 00:08] LABS: Burr Cells 1+; Target Cells 1+
[2024-08-09 00:09] LABS: Anisocytosis 1+; Poikilocytosis 1+; Polychromasia 1+
[2024-08-09 00:15] LABS: Thyroid Stimulating Hormone 2.63 uIU/mL (0.465-4.68)
[2024-08-09 03:16] LABS: HIV Combo NEGATIVE (Negative)
[2024-08-09 03:29] LABS: Hepatitis C Ab Qual. W/ RFX NEGATIVE (Negative)
[2024-08-10 05:19] LABS: Hepatitis B Surface Antigen Negative (Negative)
== END 2024-08-08 23:59 | disposition home or self-care (01) ==
LOC: LAB.DROPOF 22:49
PROVIDERS: PCP Family Medicine; Visit Provider Family Medicine
DX: Z11.59 Encounter for screening for other viral diseases (principal); R79.89 Other specified abnormal findings of blood chemistry; E78.5 Hyperlipidemia, unspecified
CPT/HCPCS: 84436; 84443; 84479; 85007; 85014; 85018; 85048; 85049; 86803; 87340; 87389

== ENCOUNTER 2024-08-13 07:21 | Outpatient (CLI) | payer OTHER, SELFPAY ==
--- NOTE | 2024-08-13 07:30 | US_ITS ---
FINAL REPORT CLINICAL HISTORY: food intolerance, GERD , Diarrhea FINDINGS: RIGHT UPPER QUADRANT ULTRASOUND Technique: Ultrasound images of the right upper quadrant were obtained. There is fatty infiltration of the liver. The gallbladder is distended and sludge filled. Common duct is normal. The right kidney is unremarkable. IMPRESSION: Bladder sludge. Fatty liver. Reviewed, Interpreted and Dictated by Vladimir Birmingham MD Transcribed by Audrey Stuart Authenticated and [facility]
== END 2024-08-13 23:59 | disposition home or self-care (01) ==
LOC: RAD 07:22
PROVIDERS: PCP Family Medicine; Visit Provider Family Medicine
DX: K76.0 Fatty (change of) liver, not elsewhere classified (principal); N32.89 Other specified disorders of bladder; K90.49 Malabsorption due to intolerance, not elsewhere classified; K21.9 Gastro-esophageal reflux disease without esophagitis
CPT/HCPCS: 76705

== ENCOUNTER 2024-10-13 17:01 | Emergency (ER) | payer OTHER, SELFPAY ==
[2024-10-13] VITALS (10 sets, daily range): BP systolic 156–181; BP diastolic 94–105; PULSE 75–92; RESP 16–18; TEMP 36.6–36.8; O2SAT 94–98; BMI 49.2
--- NOTE | 2024-10-13 17:18 | ED_ITS ---
Discharge Plan Disposition Patient Disposition: Xfer Short-Term Hosp Condition: Good Prescriptions Prescriptions: No Action cholecalciferol (vitamin D3) 1,250 mcg (50,000 unit) capsule 1,250 mcg PO WEEKLY 42 Days Qty: 6 4RF hydroxyzine HCl 25 mg tablet 25 mg PO HS Qty: 30 0RF Rx Instructions: Take 1-2 tabs at bedtime for insomnia bupropion HCl [Wellbutrin SR] 150 mg tablet sustained-release 12 hr 150 mg PO DAILY Qty: 30 2RF glipizide 10 mg tablet 10 mg PO BID Qty: 60 2RF omeprazole 20 mg capsule,delayed release(DR/EC) 20 mg PO DAILY Qty: 30 2RF varenicline tartrate [Chantix Starting Month Box] 0.5 mg (11)- 1 mg (42) tablets,dose pack See Rx Instructions PO PER PKG DIR Qty: 53 0RF Rx Instructions: PO PER PKG DIR Ozempic 0.25 mg or 0.5 mg(2 mg/1.5 mL) pen injector 0.5 mg SQ WEEKLY Qty: 1.5 2RF (DME) Accu-Chek Peggy Plus test strp Strip See Rx Instructions .ROUTE .MEDSUPPLY Qty: 100 2RF Rx Instructions: As directed (DME) blood-glucose meter Kit See Rx Instructions .ROUTE .MEDSUPPLY Qty: 1 0RF Rx Instructions: As directed (DME) lancets [Accu-Chek Softclix Lancets] Misc See Rx Instructions .ROUTE .MEDSUPPLY Qty: 100 2RF Rx Instructions: As directed fluticasone propionate [Flonase Allergy Relief] 50 mcg/actuation spray,suspension 1 spray intranasal DAILY PRN (Reason: cold symptoms) Qty: 16 0RF Rx Instructions: administer into each nostril albuterol sulfate 90 mcg/actuation HFA aerosol inhaler 1 inh inhalation Q6H PRN (Reason: shortness of breath or wheezing) Qty: 8.5 2RF atorvastatin [Lipitor] 20 mg tablet 20 mg PO HS Qty: 30 3RF Referrals Follow up/Referrals: Divine Purdy APRN [Primary Care Provider, Family Practice] - See instructions Clinical Impressions Clinical Impression: Dental abscess, Cellulitis of face Stand Alone Forms Stand Alone Forms: Transfer Record - ED Print Language Print Language: French Discharge ED Provider: Helena Mckenzie General Adult HPI <Zena Polanco - Last Filed: 10/13/24 22:03> General Chief complaint: Dental/Oral Stated complaint: Toothache Time Seen by Provider: 10/13/24 17:17 Mode of Arrival: Ambulatory Source of Information: Patient Description of Symptoms (Recalled from ER Triage Doc. by RN): Pt presents with c/o Left sided facial swelling that started 1 week ago. Pt is scheduled to have oral surgery on October 25. Pt states she called the surgeon and he prescribed amoxicillin History of Present Illness HPI narrative: 39-year-old female presents to the emergency department with concerns of left- sided facial swelling with numbness. Reports that she is scheduled to have all of her teeth removed with an oral surgeon on October 25 she states that she started noticing the swelling yesterday and notified her dentist who started her on amoxicillin. She reports she has taken 3 dose of the amoxicillin however the swelling is continuing to worsen. She reports minimal pain but states that it does feel numb and tingling to her left side of face. Related Data Previous Rx's ?Medication ?Instructions ?Recorded atorvastatin 20 mg tablet (Lipitor) 20 mg PO HS #30 ta bs 01/04/24 blood sugar diagnostic (Accu-Chek #100 ea 01/04/24 Peggy Plus test strips) blood-glucose meter #1 ea 01/04/24 lancets (Accu-Chek Softclix #100 ea 01/04/24 Lancets) cholecalciferol (vitamin D3) 1,250 1,250 mcg PO WEEKLY 6 weeks #6 caps 02/05/24 mcg (50,000 unit) capsule fluticasone propionate 50 1 spray intranasal DAILY PRN cold 02/23/24 mcg/actuation nasal symptoms #16 grams spray,suspension (Flonase Allergy Relief) bupropion HCl 150 mg tablet,12 hr 150 mg PO DAILY #30 ea 04/24/24 sustained-release (Wellbutrin SR) hydroxyzine HCl 25 mg tablet 25 mg PO HS #30 tabs 03/31 08/21 albuterol sulfate 90 mcg/actuation 1 inh inhalation Q6 H PRN shortness 06/27/24 aerosol inhaler of breath or wheezing #8.5 g prosper glipizide 10 mg tablet 10 mg PO BID #60 tabs omeprazole 20 mg capsule,delayed 20 mg PO DAILY #30 ca ps 08/08/24 release varenicline tartrate 0.5 mg (11)-1 See Rx Instructions PO PER PKG DIR 08/08/24 mg (42) tablets in a dose pack #53 tabs (Chantix Starting Month Box) semaglutide 0.25 mg or 0.5 mg (2 0.5 mg (0.374 mL) SQ WEEKLY #1.5 mL 09/16/24 mg/1.5 mL) subcutaneous pen injector (Ozempic) Allergies Allergy/AdvReac Type Severity Reaction Status Date / Time Sulfa (Sulfonamide Allergy Verified 09/16/24 15:56 Antibiotics) [facility] <Zena Polanco - Last Filed: 10/13/24 22:03> [facility] Disclaimer: The information contained in this section may have been updated after the patient was seen, as this information can be updated by other users. Medical History History of nasal congestion History of hyperlipidemia History of hypertension History of depression History of diabetes as a child AMI (obstructive sleep apnea) Bronchitis URI (upper respiratory infection) Strep pharyngitis Abscessed tooth Viral syndrome Sinusitis Abrasion of sclera of right eye Cough Encounter for laboratory testing for COVID-19 virus Pulled hamstring Acute bronchitis Exposure to COVID-19 virus Pharyngitis Elevated LDL cholesterol level Abnormal electrocardiogram [ECG] [EKG] Edema of both lower extremities Pinched nerve Surgical History No history of previous surgery Family History Other Anxiety Coronary artery disease Depression Diabetes Hypertension Narcolepsy Obesity Sleep apnea Stroke Social History Smoking Status: Current every day smoker tobacco type: cigarettes packs per day: 1 second hand exposure: Yes alcohol intake: never current occupational status: other Travel in the last 8 weeks?: None housing: house Have you lived/traveled outside [place] in past 30 days?: No Contact w/someone who lives/traveled outside [place] past 30 days?: No Exposure to someone with infectious disease in past 14 days?: No Do you have a fever (greater than 100.4 F or 38 C)?: No Have you tested positive for COVID-19?: No Exposed to someone with COVID-19 in past 14 days?: No Do you have a sore throat?: No Do you have a cough?: No Do you have any weakness?: No Do you have any diarrhea?: No Are you experiencing any unusual bleeding?: No Do you have any muscle aches/pain?: No Do you have any abdominal pain?: No Are you experiencing loss of taste or smell?: No Other Medical History Have you received the Flu Vaccine for this season: No Have you received the Pneumonia Vaccine: No <Zena Polanco - Last Filed: 10/13/24 22:03> ROS Obtained: Yes All systems reviewed & no additional complaints except as documented Physical Exam <Zena Polanco - Last Filed: 10/13/24 22:03> Narrative Physical exam: Patient has mild erythema with swelling to her left cheek and periorbital area. She denies tenderness on palpation of the area. Patient with numerous fractured teeth, severe gingivitis and plaque buildup. She also has numerous dental caries. Patient with decree sensation to the left side of her face. Rest of exam is unremarkable. General General appearance: alert Respiratory Respiratory exam: Present normal lung sounds bilaterally Cardiovascular Cardiovascular exam: Present regular rate and clicks Neurological Exam Neurological exam: Present alert Medical Decision Making <Zena Polanco - Last Filed: 10/13/24 22:03> Medical Records Screening: Per USPSTF and CDC recommendations, given the prevalence of disease in our region, it is our hospital?s policy to screen for HIV and viral Hepatitis for all patients aged 18 and over and those with ongoing risk factors. Garret Inquiry Pt receiving controlled substance: No Vital Signs: 10/13/24 17:03 10/13/24 17:30 10/13/24 18:00 Temperature 98.3 F Temperature Source Oral Pulse Rate 91 H 86 Pulse Rate [Right] 92 H Respiratory Rate 18 Blood Pressure 178/105 H 156/94 H Blood Pressure [Right Arm] 181/100 H Blood Pressure Mean Blood Pressure Mean [Right Arm] 127 02 Sat by Pulse Oximetry 97 94 L 96 Oxygen Delivery Method Room Air 10/13/24 18:30 10/13/24 19:00 10/13/24 19:17 Temperature Temperature Source Pulse Rate 85 87 81 Pulse Rate [Right] Respiratory Rate 16 Blood Pressure 165/96 H 178/95 H 178/95 H Blood Pressure [Right Arm] Blood Pressure Mean 122 Blood Pressure Mean [Right Arm] 02 Sat by Pulse Oximetry 95 96 95 Oxygen Delivery Method Room Air 10/13/24 20:14 10/13/24 20:16 10/13/24 21:07 Temperature Temperature Source Pulse Rate 75 79 81 Pulse Rate [Right] Respiratory Rate 16 16 Blood Pressure 156/105 H 156/105 H 158/101 H Blood Pressure [Right Arm] Blood Pressure Mean 114 Blood Pressure Mean [Right Arm] 02 Sat by Pulse Oximetry 97 94 L 98 Oxygen Delivery Method Room Air Room Air 10/13/24 21:59 Temperature 97.9 F Temperature Source Pulse Rate 78 Pulse Rate [Right] Respiratory Rate 18 Blood Pressure 178/100 H Blood Pressure [Right Arm] Blood Pressure Mean Blood Pressure Mean [Right Arm] 02 Sat by Pulse Oximetry Oxygen Delivery Method Room Air Lab Data Lab Results 10/13/24 17:35: WBC 14.1 H, RBC 5.07, Hgb 13.6, Hct 42.5, MCV 83.8, MCH 26.8 L, MCHC 32.0, RDW 15.2, Plt Count 421, MPV 11.3 H, Neut % (Auto) 62.9, Lymph % (Auto) 26.5, Kleberg % (Auto) 6.1, Eos % (Auto) 3.0, Baso % (Auto) 0.6, Neut # (Auto) 8.9 H, Lymph # (Auto) 3.8, Kleberg # (Auto) 0.9, Eos # (Auto) 0.4, Baso # (Auto) 0.1, ESR 16, Sodium 134 L, Potassium 4.0, Chloride 102, Carbon Dioxide 27, Anion Gap 9.0, BUN 8, Creatinine 0.60, Estimated Creat Clear 102, Estimated GFR 110, Est GFR ( Amer) 133, Glucose 233 H, Calcium 9.1, Total Bilirubin 0.4, AST 30, ALT 34, Alkaline Phosphatase 88, C-Reactive Protein 20.7 H, Total Protein 7.0, Albumin 3.9, Globulin 3.1, Albumin/Globulin Ratio 1.3, Serum HCG, Qual Negative 10/13/24 18:19: VBG Lactic Acid 1.9 10/13/24 17:35 08/17/25 17:35 Orders (Tests/Meds): ED MEDICATIONS Discontinued Medications Generic Name Dose Route Start Last Admin Trade Name Kaylyn PRN Reason Stop Dose Admin Ampicillin Sodium/Sulbactam 100 mls @ 200 mls/hr 10/13/24 20:43 10/13/24 21:03 Sodium 3 gm/ Sodium Chloride IV 10/13/24 20:44 200 mls/hr ONCE ONE Administration Iopamidol 75 ml 10/13/24 18:47 10/13/24 18:48 Iopamidol-370 (76%);100ml Bottle IV 10/13/24 18:48 75 ml ONCE ONE Administration Potassium Chloride 40 meq 10/13/24 18:31 10/13/24 18:55 Potassium Chloride 20meq Tab PO 10/13/24 18:32 40 meq ONCE ONE Administration Sodium Chloride 10 ml 10/13/24 18:47 10/13/24 18:48 Sodium Chloride 0.9% 10ml Syr (Rad Only) IV 10/13/24 18:48 10 ml ONCE ONE Administration ORDERS Category Date Time Status CT facial bones w con Stat Cat Scan 10/13/24 17:23 Completed Beta HCG, Qual [HCG Qualitative, Serum] Stat Lab 10/13/24 17:35 Completed CBC w/Auto Diff [Complete Blood Count Auto Diff] Stat Lab 10/13/24 17:35 Completed CMP [Comprehensive Metabolic Panel] Stat Lab 10/13/24 17:35 Completed CRP [C-Reactive Protein] Stat Lab 10/13/24 17:35 Completed ESR [Erythrocyte Sedimentation Rate] Stat Lab 10/13/24 17:35 Completed Lactate Venous Stat Lab 10/13/24 18:19 Completed Blood Culture Stat Micro 10/13/24 17:33 Received Medical Decision Narrative: 39-year-old female with a history of severe dental disease presents to the emergency department with complaints of swelling, erythema to her left cheek and periorbital area. States she is scheduled to have all of her teeth removed on October 25 by oral surgery. She noticed the swelling yesterday and notified her dental provider who started her on amoxicillin. She reports she has taken 3 doses of the antibiotic without relief of her symptoms. He is now concerned that she is having worsening swelling and numbness to the left side of her face. He does report minimal pain to the area. Exam reveals severe dental disease with multiple dental caries and fractured teeth as well as severe gingivitis and plaque buildup. Patient reports tenderness on palpation to the area above her left upper canine tooth. She also has erythema with swelling around the periorbital area to her left cheek and eye. Exam is unremarkable. Will do CT of the face with IV contrast to further evaluate for possible dental abscess. In addition we will also collect labs including lactic acid and blood cultures as well as sed rate and CRP. Patient's white blood cell count was 14.1 with a CRP of 20.7, rest of laboratory studies were nonactionable. CT of face with IV contrast shows a periapical lucency involving the root of the left maxillary canine. Appears to be a tiny tract from this lucency with trace disruption of the outer cortex and there is an associated otogenic abscess superficial to the left medial lower maxillary bone. The abscess measures 1 cm in transverse diameter by 8 cm in craniocaudal dimension is also adjacent cellulitis within the left nasolabial fold. Based off the CT findings and laboratory studies we have reached out to [facility] for an [facility] [place]. Spoke with Dr. Reid with the transfer center as well as Dr. Mcgarry with [facility] They recommended transferring to their facility for general dentistry consultation with probable abscess drainage. Patient was given 3 g of Unasyn awaiting to hear the recommendations from [facility]. Upon reevaluation the erythema that was present to her left cheek has improved. I have updated her on the workup findings and the recommendations of [facility] and she is agreeable for transfer at this time. <Helena Mckenzie MD - Last Filed: 10/14/24 00:00> Vital Signs: 10/13/24 17:03 10/13/24 17:30 10/13/24 18:00 Temperature 98.3 F Temperature Source Oral Pulse Rate 91 H 86 Pulse Rate [Right] 92 H Respiratory Rate 18 Blood Pressure 178/105 H 156/94 H Blood Pressure [Right Arm] 181/100 H Blood Pressure Mean Blood Pressure Mean [Right Arm] 127 02 Sat by Pulse Oximetry 97 94 L 96 Oxygen Delivery Method Room Air 10/13/24 18:30 10/13/24 19:00 10/13/24 19:17 Temperature Temperature Source Pulse Rate 85 87 81 Pulse Rate [Right] Respiratory Rate 16 Blood Pressure 165/96 H 178/95 H 178/95 H Blood Pressure [Right Arm] Blood Pressure Mean 122 Blood Pressure Mean [Right Arm] 02 Sat by Pulse Oximetry 95 96 95 Oxygen Delivery Method Room Air 10/13/24 20:14 10/13/24 20:16 10/13/24 21:07 Temperature Temperature Source Pulse Rate 75 79 81 Pulse Rate [Right] Respiratory Rate 16 16 Blood Pressure 156/105 H 156/105 H 158/101 H Blood Pressure [Right Arm] Blood Pressure Mean 114 Blood Pressure Mean [Right Arm] 02 Sat by Pulse Oximetry 97 94 L 98 Oxygen Delivery Method Room Air Room Air 10/13/24 21:59 Temperature 97.9 F Temperature Source Pulse Rate 78 Pulse Rate [Right] Respiratory Rate 18 Blood Pressure 178/100 H Blood Pressure [Right Arm] Blood Pressure Mean Blood Pressure Mean [Right Arm] 02 Sat by Pulse Oximetry Oxygen Delivery Method Room Air Lab Data Lab Results 10/13/24 17:35: WBC 14.1 H, RBC 5.07, Hgb 13.6, Hct 42.5, MCV 83.8, MCH 26.8 L, MCHC 32.0, RDW 15.2, Plt Count 421, MPV 11.3 H, Neut % (Auto) 62.9, Lymph % (Auto) 26.5, Kleberg % (Auto) 6.1, Eos % (Auto) 3.0, Baso % (Auto) 0.6, Neut # (Auto) 8.9 H, Lymph # (Auto) 3.8, Kleberg # (Auto) 0.9, Eos # (Auto) 0.4, Baso # (Auto) 0.1, ESR 16, Sodium 134 L, Potassium 4.0, Chloride 102, Carbon Dioxide 27, Anion Gap 9.0, BUN 8, Creatinine 0.60, Estimated Creat Clear 102, Estimated GFR 110, Est GFR ( Amer) 133, Glucose 233 H, Calcium 9.1, Total Bilirubin 0.4, AST 30, ALT 34, Alkaline Phosphatase 88, C-Reactive Protein 20.7 H, Total Protein 7.0, Albumin 3.9, Globulin 3.1, Albumin/Globulin Ratio 1.3, Serum HCG, Qual Negative 10/13/24 18:19: VBG Lactic Acid 1.9 Orders (Tests/Meds): ED MEDICATIONS Discontinued Medications Generic Name Dose Route Start Last Admin Trade Name Freq PRN Reason Stop Dose Admin Ampicillin Sodium/Sulbactam 100 mls @ 200 mls/hr 10/13/24 20:43 10/13/24 21:03 Sodium 3 gm/ Sodium Chloride IV 10/13/24 20:44 200 mls/hr ONCE ONE Administration Iopamidol 75 ml 10/13/24 18:47 10/13/24 18:48 Iopamidol-370 (76%);100ml Bottle IV 10/13/24 18:48 75 ml ONCE ONE Administration Potassium Chloride 40 meq 10/13/24 18:31 10/13/24 18:55 Potassium Chloride 20meq Tab PO 10/13/24 18:32 40 meq ONCE ONE Administration Sodium Chloride 10 ml 10/13/24 18:47 10/13/24 18:48 Sodium Chloride 0.9% 10ml Syr (Rad Only) IV 10/13/24 18:48 10 ml ONCE ONE Administration ORDERS Category Date Time Status CT facial bones w con Stat Cat Scan 10/13/24 17:23 Completed Beta HCG, Qual [HCG Qualitative, Serum] Stat Lab 10/13/24 17:35 Completed CBC w/Auto Diff [Complete Blood Count Auto Diff] Stat Lab 10/13/24 17:35 Completed CMP [Comprehensive Metabolic Panel] Stat Lab 10/13/24 17:35 Completed CRP [C-Reactive Protein] Stat Lab 10/13/24 17:35 Completed ESR [Erythrocyte Sedimentation Rate] Stat Lab 10/13/24 17:35 Completed Lactate Venous Stat Lab 10/13/24 18:19 Completed Blood Culture Stat Micro 10/13/24 17:33 Received Medical Decision Narrative: 39-year-old female with a history of severe dental disease presents to the emergency department with complaints of swelling, erythema to her left cheek and periorbital area. States she is scheduled to have all of her teeth removed on October 25 by oral surgery. She noticed the swelling yesterday and notified her dental provider who started her on amoxicillin. She reports she has taken 3 doses of the antibiotic without relief of her symptoms. He is now concerned that she is having worsening swelling and numbness to the left side of her face. He does report minimal pain to the area. Exam reveals severe dental disease with multiple dental caries and fractured teeth as well as severe gingivitis and plaque buildup. Patient reports tenderness on palpation to the area above her left upper canine tooth. She also has erythema with swelling around the periorbital area to her left cheek and eye. Exam is unremarkable. Will do CT of the face with IV contrast to further evaluate for possible dental abscess. In addition we will also collect labs including lactic acid and blood cultures as well as sed rate and CRP. Patient's white blood cell count was 14.1 with a CRP of 20.7, rest of laboratory studies were nonactionable. CT of face with IV contrast shows a periapical lucency involving the root of the left maxillary canine. Appears to be a tiny tract from this lucency with trace disruption of the outer cortex and there is an associated otogenic abscess superficial to the left medial lower maxillary bone. The abscess measures 1 cm in transverse diameter by 8 cm in craniocaudal dimension is also adjacent cellulitis within the left nasolabial fold. Based off the CT findings and laboratory studies we have reached out to [facility] for an [facility] [place]. Spoke with Dr. Reid with the transfer center as well as Dr. Mcgarry with [facility] They recommended transferring to their facility for general dentistry consultation with probable abscess drainage. Patient was given 3 g of Unasyn awaiting to hear the recommendations from [facility]. Upon reevaluation the erythema that was present to her left cheek has improved. I have updated her on the workup findings and the recommendations of [facility] and she is agreeable for transfer at this time. I was consulted by the PATRICIA, and we discussed the complexity of problems being addressed. I approved the treatment and management plan for this patient's care in the emergency department, thus performing a substantial portion of the medical decision making. Helena Mckenzie MD Critical Care <Zena Polanco - Last Filed: 10/13/24 22:03> Critical Care Time Critical Care Time: No
--- NOTE | 2024-10-13 17:23 | CT_ITS ---
PROCEDURE INFORMATION: Exam: CT Maxillofacial With Contrast Exam date and time: 10/13/2024 6:49 PM Age: 39 years old Clinical indication: Other: Dental abscess TECHNIQUE: Imaging protocol: Computed tomography of the face with contrast. Radiation optimization: All CT scans at this facility use at least one of these dose optimization techniques: automated exposure control; mA and/or kV adjustment per patient size (includes targeted exams where dose is matched to clinical indication); or iterative reconstruction. Contrast material: ISOVUE; Contrast volume: 75 ml; Contrast route: IV; COMPARISON: No relevant prior studies available. FINDINGS: Brain: Periapical lucency involving the root of the left maxillary canine there appears to be a tiny tract from this lucency with trace disruption the outer cortex and there is an associated odontogenic abscess that measures 1 cm in transverse diameter by approximately 8 mm in craniocaudal dimension. Paranasal sinuses: No air-fluid levels. Orbital cavities: Orbits are normal. Globes are unremarkable. Teeth: Multiple other periapical lucencies and multiple dental caries. Bones: No acute fracture. Soft tissues: Unremarkable. Other findings: There is adjacent cellulitis within the left nasal labial fold. IMPRESSION: 1. Periapical lucency involving the root of the left maxillary canine there appears to be a tiny tract from this lucency with trace disruption the outer cortex and there is an associated odontogenic abscess superficial to the medial left lower maxilla bone . The abscess measures 1 cm in transverse diameter by approximately 8 mm in craniocaudal dimension. 2. There is adjacent cellulitis within the left nasal labial fold. 3. Multiple other periapical lucencies and multiple dental caries.
[2024-10-13 17:47] LABS: Hematocrit 42.5 % (37.0-47.0); Hemoglobin 13.6 g/dL (12.2-16.2); Immature Granulocytes % 0.9 %; Mean Corpuscular HGB Conc 32.0 g/dL (31.8-35.4); Mean Corpuscular Hemoglobin 26.8 pg (27.0-31.2); Mean Corpuscular Volume 83.8 fl (81-99); Nucleated Red Blood Cells % 0 %; Platelet Count 421 K/mm3 (142-424); Red Blood Count 5.07 M/mm3 (4.20-5.40); Red Cell Distribution Width-SD 46.0 fL; White Blood Count 14.1 K/mm3 (4.8-10.8)
[2024-10-13 17:55] LABS: Chloride 102 mmol/L (98-107)
[2024-10-13 17:56] LABS: Albumin Level 3.9 g/dl (3.5-5.0); Potassium 4.0 mmoL/L (3.5-5.1); Sodium 134 mmol/L (136-145)
[2024-10-13 17:58] LABS: Alanine Aminotransferase 34 U/L (12-78); Albumin/Globulin Ratio 1.3 (1.1-1.8); Alkaline Phosphatase 88 U/L (38-126); Anion Gap 9.0 mEq/L (5-15); Aspartate Amino Transferase 30 U/L (14-36); Bilirubin,Total 0.4 mg/dl (0.2-1.3); Blood Urea Nitrogen 8 mg/dl (7-17); Carbon Dioxide 27 mmol/L (22.0-30.0); Creatinine Clearance Estimated 102 mL/min (50-200); Creatinine,Serum 0.60 mg/dl (0.52-1.04); Estimated Glomerular Filt Rate 110 ml/min (>60); GFR (African American) 133 ML/MIN (>60); Globulin 3.1 g/dL (1.3-3.2); Total Protein,Serum 7.0 g/dl (6.3-8.2)
[2024-10-13 17:59] LABS: Calcium 9.1 mg/dl (8.4-10.2); Glucose 233 mg/dl (74-100)
[2024-10-13 18:04] LABS: C-Reactive Protein 20.7 mg/L (0-4)
--- NOTE | 2024-10-13 18:16 | PC.NURSE ---
SPOKE TO RESPIRATORY REGARDING LACTIC
[2024-10-13 18:22] LABS: Lactate Venous 1.9 mmol/L (0.4-2.0)
[2024-10-13 18:33] LABS: HCG Qualitative, Serum Negative (Negative)
[2024-10-13] MEDS: IOPAMIDOL-370 (76%);100ML BOTTLE 75 ML IV (18:48)
[2024-10-13] MEDS: SODIUM CHLORIDE 0.9% 10ML SYR (RAD ONLY) 10 ML IV (18:48)
[2024-10-13] MEDS: POTASSIUM CHLORIDE 20MEQ TAB 40 MEQ PO (18:55)
--- NOTE | 2024-10-13 19:17 | PC.NURSE ---
Resumed care from DINORAH Carlin.
[2024-10-13] MEDS: AMPICILLIN SODIUM/SULBACTAM 3 GM in 0.9 % SODIUM CHLORIDE 100 ML IV (21:03)
== END 2024-10-13 22:16 | disposition short-term general hospital (02) ==
PROVIDERS: Nurse Practitioner Family; Emergency Provider Student in an Organized Health Care Education/Training Program; PCP Family Medicine
DX: L03.211 Cellulitis of face (principal); K04.7 Periapical abscess without sinus
CPT/HCPCS: 70487; 80053; 83605; 84703; 85025; 85651; 86140; 87040; 96374; 99284; 99285; J0295; Q9967